=== PATIENT | male | born 1985 | race Caucasian/White ===

== ENCOUNTER 2018-04-02 12:06 | Emergency (ER) | payer SELFPAY ==
[2018-04-02 12:15] VITALS: BP 114/70; PULSE 82; TEMP 98.6; BMI 24.0
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
== END 2018-04-02 12:56 | disposition home or self-care (01) ==
LOC: JERFT 12:06
DX: M25.561 Pain in right knee (principal); M25.562 Pain in left knee; F17.210 Nicotine dependence, cigarettes, uncomplicated
CPT/HCPCS: 99281-25

== ENCOUNTER 2019-08-16 18:32 | Inpatient (IN) | payer OTHER ==
[2019-08-16] MEDS ORDERED: chlordiazePOXIDE HCL 25 MG CAPSULE PO STA (18:50)
[2019-08-16] MEDS ORDERED: chlordiazePOXIDE HCL 25 MG CAPSULE ONE ×2 (18:56→23:22)
[2019-08-16] MEDS ORDERED: FOLIC ACID INJECTION - 1 MG, THIAMINE HCL 100 MG, MULTIVIT INJECTION ADULT 10 ML in SOD... IVPB ONE (19:03)
[2019-08-16 19:04] VITALS: BMI 24.0
[2019-08-16 19:11] LABS: BASO % 1.1 % (0-2.0); EOS % 0.4 % (0-4.5); HEMATOCRIT 42.8 % (35.4-49); HEMOGLOBIN 14.9 GM/dL (11.7-16.9); LYMPH % 10.8 % (8-40); MCH 34.6 pg (25.7-33.7); MCHC 34.8 g/dl (32.0-35.9); MEAN CELL VOLUME 99.3 fl (80-96); MEAN PLT VOLUME 8.9 fl (7.5-11.1); MONO % 6.5 % (3.8-10.2); NEUT % 81.2 % (42.8-82.8); PLATELET COUNT 52 K/MM3 (134-434); RBC 4.31 M/mm3 (4.00-5.60); WHITE BLOOD COUNT 6.2 K/mm3 (4.0-10.0)
[2019-08-16] MEDS ORDERED: LORazepam 2 MG/ML SDV VIAL ONE (19:13)
[2019-08-16 19:51] LABS: ALBUMIN 4.4 g/dl (3.4-5.0); BLOOD UREA NITROGEN 7.5 mg/dL (7-18); CALCIUM 9.3 mg/dL (8.5-10.1); CREATININE 0.7 mg/dL (0.55-1.3); POTASSIUM 3.8 mmol/L (3.5-5.1); TOT PROT 8.2 g/dl (6.4-8.2)
--- NOTE | 2019-08-16 20:34 | PDOC ---
Documentation entered by Yusef Rich SCRIBE, acting as scribe for Taylor Fraga MD. Taylor Fraga MD: This documentation has been prepared by the Hilario ny Daniel, SCRIBE, under my direction and personally reviewed by me in its entirety. I confirm that the documentation accurately reflects all work, treatment, procedures, and medical decision making performed by me. History of Present Illness - General Chief Complaint: Tremors Stated Complaint: FALL Time Seen by Provider: 08/16/19 18:50 History Source: Patient Exam Limitations: No Limitations - History of Present Illness Initial Comments: 08/16/19 19:05 The patient is a 33 year old male with a past medical history of alcohol abuse ( 6 pack a day) here today for evaluation of seizure. The patients family reports that the patients last drink was yesterday and had a witnessed seizure when he stepped out to smoke a cigarette around 5 PM today. Family notes that the patient had recent left ear pain but is being followed for it. Patient denies headache, lightheadedness. Denies fever, chills. Denies chest pain, shortness of breath. Denies nausea, vomiting, diarrhea, abdominal pain. Allergies: NKA Past History - Past Medical History Allergies/Adverse Reactions: Allergies Allergy/AdvReac Type Severity Reaction Status Date / Time No Known Allergies Allergy Verified 08/16/19 18:52 Home Medications: Ambulatory Orders NK [No Known Home Medication] 04/02/18 COPD: No - Immunization History Immunization Up to Date: Yes - Psycho Social/Smoking Cessation Hx Smoking History: Current some day smoker Number of Cigarettes Smoked Daily: 5 Hx Alcohol Use: Yes (social) Drug/Substance Use Hx: No Review of Systems - Review of Systems Able to Perform ROS?: Yes Comments:: 08/16/19 19:05 CONSTITUTIONAL: Absent: fever, chills, diaphoresis, generalized weakness, malaise, loss of appetite HEENT: +tongue fasciculations. Absent: rhinorrhea, nasal congestion, throat pain, throat swelling, difficulty swallowing, mouth swelling, ear pain, eye pain, visual Changes CARDIOVASCULAR: Absent: chest pain, syncope, palpitations, irregular heart rate, lightheadedness , peripheral edema RESPIRATORY: Absent: cough, shortness of breath, dyspnea with exertion, orthopnea, wheezing, stridor, hemoptysis GASTROINTESTINAL: Absent: abdominal pain, abdominal distension, nausea, vomiting, diarrhea, constipation, melena, hematochezia GENITOURINARY: Absent: dysuria, frequency, urgency, hesitancy, hematuria, flank pain, genital pain MUSCULOSKELETAL: Absent: myalgia, arthralgia, joint swelling SKIN: Absent: rash, itching, pallor HEMATOLOGIC/IMMUNOLOGIC: Absent: easy bleeding, easy bruising, lymphadenopathy, frequent infections ENDOCRINE: Absent: unexplained weight gain, unexplained weight loss, heat intolerance, cold intolerance NEUROLOGIC: +extremity tremors. +general weakness. Absent: headache, focal weakness or paresthesias, dizziness, unsteady gait, mental status changes, bladder or bowel incontinence PSYCHIATRIC: Absent: anxiety, depression, suicidal or homicidal ideation, hallucinations. *Physical Exam - Vital Signs Last Vital Signs Temp Pulse Resp BP Pulse Ox 98.2 F 87 16 131/77 96 08/16/19 18:56 08/16/19 18:56 08/16/19 18:56 08/16/19 18:56 08/16/19 18:56 - Physical Exam 08/16/19 19:06 GENERAL: +disheveled appearing. +slim. Awake and alert. No acute distress. HEENT: +tongue fasciculations. Normocephalic. PERRLA, EOMI. No conjunctival pallor. Sclera are non-icteric. Moist mucous membranes. Oropharynx is clear. NECK: Supple. Full ROM. No JVD. Carotid pulses 2+ and symmetric, without bruits. No thyromegaly. No lymphadenopathy. CARDIOVASCULAR: Regular rate and rhythm. No murmurs, rubs, or gallops. Distal pulses are 2+ and symmetric. PULMONARY: No evidence of respiratory distress. Lungs clear to auscultation bilaterally. No wheezing, rales or rhonchi. ABDOMINAL: Soft. Non-tender. Non-distended. No rebound or guarding. No organomegaly. Normoactive bowel sounds. MUSCULOSKELETAL Normal range of motion at all joints. No bony deformities or tenderness. No CVA tenderness. EXTREMITIES: No cyanosis. No clubbing. No edema. No calf tenderness. SKIN: +4 cm hematoma on left forehead. +multiple abrasions to the left side of the face. Warm and dry. Normal capillary refill. No rashes. No jaundice. NEUROLOGICAL: +tremulous. Alert, awake, appropriate. Cranial nerves 2-12 intact. No deficits to light touch and temperature in face, upper extremities and lower extremities. No motor deficits in the face, upper extremities and lower extremities. Normoreflexic in the upper and lower extremities. Normal speech. Toes are down- going bilaterally. PSYCHIATRIC: Cooperative. Good eye contact. Appropriate mood and affect. ED Treatment Course - LABORATORY CBC & Chemistry Diagram: 08/16/19 18:55 08/16/19 18:55 - ADDITIONAL ORDERS Additional order review: Laboratory Results 08/16/19 08/16/19 19:30 18:55 Sodium 130 L Potassium 3.8 Chloride 95 L Carbon Dioxide 22 Anion Gap 13 BUN 7.5 Creatinine 0.7 Est GFR (CKD-EPI)AfAm 145.74 Est GFR (CKD-EPI)NonAf 125.75 Random Glucose 147 H Calcium 9.3 Total Bilirubin 2.0 H AST 182 H ALT 117 H Alkaline Phosphatase 91 Total Protein 8.2 Albumin 4.4 Alcohol, Quantitative < 3 08/16/19 18:55 RBC 4.31 MCV 99.3 H MCHC 34.8 RDW 12.0 MPV 8.9 Neutrophils % 81.2 Lymphocytes % 10.8 Monocytes % 6.5 Eosinophils % 0.4 Basophils % 1.1 - RADIOLOGY Radiology Studies Ordered: Category Date Time Status HEAD CT WITHOUT CONTRAST [CT] Stat CT Scan 08/16/19 18:52 Completed - Medications Given in the ED: ED Medications Discontinued Medications Generic Name Dose Route Start Last Admin Trade Name Freq PRN Reason Stop Dose Admin Chlordiazepoxide HCl 50 mg 08/16/19 18:50 08/16/19 19:01 Librium - PO 08/16/19 18:51 50 mg ONCE STA Administration Lorazepam 2 mg 08/16/19 19:02 08/16/19 19:16 Ativan Injection - IVPUSH 08/16/19 19:03 2 mg ONCE ONE Administration Medical Decision Making - Medical Decision Making 08/16/19 20:25 Dr. Cat paged and returned call, case discussed. 08/16/19 20:32 33-year-old male a known history of alcoholism stopped yesterday and had a tonic-clonic seizure in the hallway at his home. Sustained large forehead hematomas and facial abrasions. Upon arrival he was tremulous with tongue fasciculations. Patient had received Ativan and Librium CAT scan did not show any acute bleed infarct or skull fracture Labs reviewed Patient has elevated total bili and LFTs but is currently not complaining of epigastric pain or nausea or vomiting EKG is normal sinus rhythm at 79 bpm at this time, QTC [address] Jose Cat will follow the patient Impression alcohol withdrawal seizure, DTs 08/16/19 20:34 08/16/19 20:37 08/16/19 20:39 Discharge - Discharge Information Problems reviewed: No Clinical Impression/Diagnosis: Alcohol abuse, Elevated liver function tests Withdrawal seizures Qualifiers: Complication of substance-induced condition: with unspecified complication Qualified Code(s): F19.239 - Other psychoactive substance dependence with withdrawal, unspecified; R56.9 - Unspecified convulsions Closed head injury Qualifiers: Encounter type: initial encounter Qualified Code(s): S09.90XA - Unspecified injury of head, initial encounter Hematoma of frontal scalp Qualifiers: Encounter type: initial encounter Qualified Code(s): S00.03XA - Contusion of scalp, initial encounter Facial abrasion Qualifiers: Encounter type: initial encounter Qualified Code(s): S00.81XA - Abrasion of other part of head, initial encounter - Admission Yes - Follow up/Referral - Patient Discharge Instructions - Post Discharge Activity
--- NOTE | 2019-08-16 21:20 | PN ---
Teaching Attending Note Name of Resident: Margie Garner ATTENDING PHYSICIAN STATEMENT I saw and evaluated the patient. I reviewed the resident's note and discussed the case with the resident. I agree with the resident's findings and plan as documented. SUBJECTIVE: Patient is a 33 year old man with a PMH of Tobacco use and Alcohol abuse (6 pack a day) here today for evaluation of seizure, fall and head trauma. The patients family reports that the patients last drink was yesterday and had a witnessed seizure when he stepped out to smoke a cigarette around 5 PM today. Family notes that the patient had recent left ear pain but is being followed for it. Patient denies headache, lightheadedness, fever, chills, chest pain, shortness of breath, nausea, vomiting, diarrhea or abdominal pain. OBJECTIVE: Alert Vital Signs Period Temp Pulse Resp BP Sys/Art Pulse Ox Last 24 Hr 98.2 F 87 16 131/77 96 HEENT: No Jaundice, eye redness or discharge, PERRLA, EOMI. Normocephalic; left forehead hematoma. External ears are normal and hearing is grossly intact. No nasal discharge. Neck: Supple, nontender. No palpable adenopathy or thyromegaly. No JVD Chest: Good effort. Clear to auscultation and percussion. Heart: Regular. No S3, rub or murmur Abdomen: Not distended, soft, nontender and no HSM. No rebound or guarding. Normal bowel sounds. Ext: Peripheral pulses intact. No leg edema. Skin: Warm and dry. No petechiae, rash or ecchymosis. Neuro: Alert. Tremulous, tongue fasciculations. CN 2-12 grossly intact. Sensation grossly intact in all four extremities and DTR are symmetric. Psych: Appropriate mood and affect. Good insight. Current Medications Generic Name Dose Route Start Last Admin Trade Name Freq PRN Reason Stop Dose Admin Folic Acid 1 mg/ Thiamine HCl 1,000 mls @ 125 mls/hr 08/16/19 19:03 08/16/19 21:41 100 mg/ Multivitamins/Minerals IVPB 08/17/19 03:02 125 mls/hr 10 ml/ Sodium Chloride ONCE ONE Administration Home Medications Medication Instructions Recorded NK [No Known Home Medication] 04/02/18 Abnormal Lab Results 08/16/19 08/16/19 18:55 18:55 MCV 99.3 H MCH 34.6 H Plt Count 52 L Sodium 130 L Chloride 95 L Random Glucose 147 H Total Bilirubin 2.0 H AST 182 H ALT 117 H ASSESSMENT AND PLAN: 1. Alcohol withdrawal seizure - Head CT scan showed left frontal scalp hematoma but no acute intracranial pathology. Hyponatremia, low platelets and elevated LFTs are all likely due to alcoholism. EKG is NSR with no significant changes. Will restrict free water intake to correct hyponatremia and monitor BMP q 6 hours. Will get upper abdominal sonogram, hepatitis serology, HbA1c, NH3, and trend LFTs. Monitor platelets and size of hematoma daily. Repeat head CT to assess hematoma in 24 hours if mentation fail to normalize. Will implement CIWA ativan alcohol withdrawal protocol and do neurochecks. Implement seizure, fall and aspiration precautions. Treat with thiamine and folic acid and monitor electrolytes (Ca,Mg,K,P). Counseled patient about abstaining from alcohol. Will consult parts specialist and refer to alcohol detox upon discharge. Will continue comprehensive care for all of patients comorbid conditions. 2. Tobacco Use Counseled on risks associated with tobacco use. We will provide patient all the necessary assistance to facilitate smoking cessation and prescribe Nicotine patch. 3. DVT prophylaxis - Platelets too low for either heparin use or SCD. Will do early ambulation was clinically safe. 4. Advance directives - Full code
--- NOTE | 2019-08-16 22:37 | HP ---
CHIEF COMPLAINT: Seizure, alcohol withdrawal PCP: none HISTORY OF PRESENT ILLNESS: Patient is a 33 year old male with PMH of alcohol abuse who presents s/p seizure. Pt is poor historian and seems confused about details of events. He drinks 10 beers a day, his last alcoholic drink was yesterday. States that he did not drink today because he was "scared about what happened yesterday" (but cannot state what had occurred). This afternoon, he was walking into his house after work and had a witnessed tonic-clonic seizure that lasted for ~10 min. He fell and hit the left side of his head and lost consciousness for a minute. Event was witnessed by patient's family. He denies any seizures or any neurologic problems in the past. On arrival to ED, pt is tremulous and agitated. Endorses auditory hallucinations. Complains of a moderate headache, especially where he hit his head. Denies nausea, vomiting, abd pain. CIWA on admission: 14 Recent Travel: denies PAST MEDICAL HISTORY: Denies PAST SURGICAL HISTORY: Denies Social History: Smokin cigarettes/day Alcohol: 10 beers/day Drugs: denies Allergies No Known Allergies Allergy (Verified 08/16/19 18:52) HOME MEDICATIONS: Home Medications Medication Instructions Recorded NK [No Known Home Medication] 04/02/18 REVIEW OF SYSTEMS CONSTITUTIONAL: Absent: fever, chills, diaphoresis, generalized weakness, malaise, loss of appetite, weight change HEENT: Absent: rhinorrhea, nasal congestion, throat pain, throat swelling, difficulty swallowing, mouth swelling, ear pain, eye pain, visual changes CARDIOVASCULAR: Absent: chest pain, syncope, palpitations, irregular heart rate, lightheadedness , peripheral edema RESPIRATORY: Absent: cough, shortness of breath, dyspnea with exertion, orthopnea, wheezing, stridor, hemoptysis GASTROINTESTINAL: Absent: abdominal pain, abdominal distension, nausea, vomiting, diarrhea, constipation, melena, hematochezia GENITOURINARY: Absent: dysuria, frequency, urgency, hesitancy, hematuria, flank pain, genital pain MUSCULOSKELETAL: Absent: myalgia, arthralgia, joint swelling, back pain, neck pain SKIN: Absent: rash, itching, pallor HEMATOLOGIC/IMMUNOLOGIC: Absent: easy bleeding, easy bruising, lymphadenopathy, frequent infections ENDOCRINE: Absent: unexplained weight gain, unexplained weight loss, heat intolerance, cold intolerance NEUROLOGIC: headache, seizure Absent: focal weakness or paresthesias, dizziness, unsteady gait, mental status changes, bladder or bowel incontinence PSYCHIATRIC: Absent: anxiety, depression, suicidal or homicidal ideation, hallucinations. PHYSICAL EXAMINATION Vital Signs - 24 hr 08/16/19 18:56 Temperature 98.2 F Pulse Rate 87 Respiratory 16 Rate Blood Pressure 131/77 O2 Sat by Pulse 96 Oximetry (%) GENERAL: Awake, alert, and oriented. Agitated and tremulous. HEAD: 4cm hematoma on L forehead. EYES: Pupils equal, round and reactive to light, extraocular movements intact, sclera mildly icteric. No lid lag. EARS, NOSE, THROAT: Ears normal, nares patent, oropharynx clear without exudates. Moist mucous membranes. Tongue fasciculations NECK: Normal range of motion, supple without lymphadenopathy, JVD, or masses. LUNGS: Breath sounds equal, clear to auscultation bilaterally. No wheezes, and no crackles. No accessory muscle use. HEART: Regular rate and rhythm, normal S1 and S2 without murmur, rub or gallop. ABDOMEN: Soft, nontender, not distended, normoactive bowel sounds, no guarding, no rebound, no masses. No hepatomegaly or splenomegaly. MUSCULOSKELETAL: Normal range of motion at all joints. No bony deformities or tenderness. No CVA tenderness. UPPER EXTREMITIES: 2+ pulses, warm, well-perfused. No cyanosis. No clubbing. No peripheral edema. LOWER EXTREMITIES: 2+ pulses, warm, well-perfused. No calf tenderness. No peripheral edema. NEUROLOGICAL: Cranial nerves II-XII intact. Muffled speech. Gait not observed. Tremor Laboratory Results - last 24 hr 08/16/19 08/16/19 08/16/19 18:55 18:55 19:30 WBC 6.2 RBC 4.31 Hgb 14.9 Hct 42.8 MCV 99.3 H MCH 34.6 H MCHC 34.8 RDW 12.0 Plt Count 52 L MPV 8.9 Absolute Neuts (auto) 5.1 Neutrophils % 81.2 Lymphocytes % 10.8 Monocytes % 6.5 Eosinophils % 0.4 Basophils % 1.1 Nucleated RBC % 0 Sodium 130 L Potassium 3.8 Chloride 95 L Carbon Dioxide 22 Anion Gap 13 BUN 7.5 Creatinine 0.7 Est GFR (CKD-EPI)AfAm 145.74 Est GFR (CKD-EPI)NonAf 125.75 Random Glucose 147 H Calcium 9.3 Total Bilirubin 2.0 H AST 182 H ALT 117 H Alkaline Phosphatase 91 Total Protein 8.2 Albumin 4.4 Alcohol, Quantitative < 3 ASSESSMENT/PLAN: Patient is a 33 year old male with PMH of alcohol abuse who presents s/p seizure. #Seizure likely 2/2 alcohol withdrawal Received 2mg ativan and 50mg librium in ED Will cont ativan protocol (scheduled dosing for now) Banana bag Frequent neuro exams, CIWA monitoring Neurology (Dr. Cat) consulted: does not recommend anti-epileptics at this time, cont to monitor and treat withdrawal Transaminitis likely 2/2 alcohol abuse. AST: 182, ALT: 117, will cont to trend #Elevated bilirubin T bili: 2 Likely 2/2 alcohol abuse RUQ US to r/o underlying pathology #Thrombocytopenia Platelets: 52 Likely 2/2 alcohol abuse F/u coags #FEN Regular diet IV NS @ 100 ml/hr #DVT ppx Heparin sq #Dispo Monitor on med-surg ATTENDING PHYSICIAN STATEMENT I saw and evaluated the patient. I reviewed the resident's note and discussed the case with the resident. I agree with the resident's findings and plan as documented. SUBJECTIVE: OBJECTIVE: ASSESSMENT AND PLAN:
[2019-08-16] MEDS ORDERED: chlordiazePOXIDE HCL 25 MG CAPSULE PO ONE (23:01)
[2019-08-17 01:16] LABS: MAGNESIUM 1.7 mg/dL (1.8-2.4)
[2019-08-17] MEDS ORDERED: HEPARIN NA (PORCINE) 5,000 UNITS/ML 1ML VIAL ONE (06:40)
[2019-08-17 06:42] LABS: BASO % 0.8 % (0-2.0); EOS % 1.7 % (0-4.5); HEMATOCRIT 39.3 % (35.4-49); HEMOGLOBIN 13.9 GM/dL (11.7-16.9); LYMPH % 16.6 % (8-40); MCH 34.8 pg (25.7-33.7); MCHC 35.3 g/dl (32.0-35.9); MEAN CELL VOLUME 98.7 fl (80-96); MEAN PLT VOLUME 9.1 fl (7.5-11.1); MONO % 10.1 % (3.8-10.2); NEUT % 70.8 % (42.8-82.8); PLATELET COUNT 49 K/MM3 (134-434); RBC 3.98 M/mm3 (4.00-5.60)
[2019-08-17] MEDS: HEPARIN NA (PORCINE) 5,000 UNITS/ML 1ML VIAL SQ SCH ×2 (06:46→16:25)
[2019-08-17 06:51] LABS: ALBUMIN 3.9 g/dl (3.4-5.0); BILIRUBIN,TOTAL 2.2 mg/dL (0.2-1); CALCIUM 9.1 mg/dL (8.5-10.1); CREATININE 0.5 mg/dL (0.55-1.3); POTASSIUM 3.4 mmol/L (3.5-5.1); TOT PROT 7.4 g/dl (6.4-8.2)
[2019-08-17 06:53] LABS: ALBUMIN 3.9 g/dl (3.4-5.0); BILIRUBIN,DIRECT 0.6 mg/dL (0.0-0.2); BILIRUBIN,TOTAL 2.2 mg/dL (0.2-1); TOT PROT 7.4 g/dl (6.4-8.2)
[2019-08-17 07:11] LABS: COCAINE, UR NEGATIVE ng/ml (CUTOFF=300); METHADONE, UR NEGATIVE ng/ml (CUTOFF=300); OPIATES, URI NEGATIVE ng/ml (CUTOFF=300); PHENCYCLIDINE,URINE NEGATIVE ng/ml (CUTOFF=25); URINE AMPHETAMINES NEGATIVE ng/ml (CUTOFF=500); URINE BARBITURATES NEGATIVE ng/ml (CUTOFF=200)
[2019-08-17] MEDS ORDERED: POTASSIUM CHLORIDE TABS 20 MEQ TABLET.ER (FP) PO ONE ×2 (08:16→08:56)
[2019-08-17] MEDS ORDERED: MAGNESIUM SULF 50% (8.12 MEQ/2 ML-1 GM VIAL) IVPB ONE (08:17)
[2019-08-17 08:20] LABS: URINE BENZODIAZEPINES POSITIVE ng/ml (CUTOFF=200)
[2019-08-17 08:35] LABS: INR 1.02 (0.83-1.09)
[2019-08-17] MEDS ORDERED: MAGNESIUM SULFATE IN WATER 2 GM/50 ML IVPB IVPB ONE (08:56)
--- NOTE | 2019-08-17 09:04 | CON.NEURO ---
Consult Consult Specialty:: Stephania Referred by:: ER - History of Present Illness History of Present Illness: 33-year-old right-handed man with history of alcohol abuse presents to the hospital with a chief complaint of witnessed seizure. I was called by the emergency room last night that the patient drinks about 10. The patient had a witnessed generalized tonic-clonic seizure no report of any recent travel no family history of seizure in the emergency room patient. Lives with no intervention. Patient was back to his baseline. Patient received a cocktail of time and Librium and the folic acid. Since the past 12 hours patient with no recurrence of his seizure activity. CAT scan of the head reveals no evidence for acute pathology. - History Source History Provided By: Patient Limitations to Obtaining History: No Limitations - Alcohol/Substance Use Hx Alcohol Use: Yes (social) - Smoking History Smoking history: Current some day smoker Aproximately how many cigarettes per day: 5 Home Medications - Allergies Allergies/Adverse Reactions: Allergies Allergy/AdvReac Type Severity Reaction Status Date / Time No Known Allergies Allergy Verified 08/16/19 18:52 - Home Medications Home Medications: Ambulatory Orders NK [No Known Home Medication] 04/02/18 Family Medical History Family History: Unremarkable Review of Systems - Review of Systems Constitutional: reports: No Symptoms Eyes: reports: No Symptoms Neurological: reports: Headache, Incoordination, Numbness Physical Exam-Neuro Vital Signs: Vital Signs Temperature 98.0 F 08/17/19 07:53 Pulse Rate 89 08/17/19 07:53 Respiratory Rate 17 08/17/19 07:53 Blood Pressure 144/87 08/17/19 07:53 O2 Sat by Pulse Oximetry (%) 98 08/17/19 07:53 Constitutional: Yes: Well Nourished Neck: Yes: WNL Cardiovascular: Yes: WNL Labs: CBC, BMP 08/17/19 05:50 08/17/19 05:50 INR, PTT INR 1.02 (0.83-1.09) 08/17/19 07:45 - Neuro Exam Level Of Consciousness: Yes: Oriented to Person, Oriented to Place, Oriented to Time Eyes: Yes: PERRLA Speech: WNL Dominant Hand: Right Gag: Present DTR's: 1+ Left Bicep, 1+ Right Bicep, 1+ Left Tricep, 1+ Right Tricep Response to light touch: Normal Response to pain prick: Normal Response to temperature: Normal Response to vibration: Normal Motor Strength: 3/5: Left Arm, Right Arm, Left Leg, Right Leg Gait: Deferred Imaging - Results Cat Scan: Image Reviewed Problem List - Problems (1) Withdrawal seizures Assessment/Plan: very hard to differentiate outcome withdrawal seizure from alcohol-induced seizure New onset seizure. 1. Seizure precautions. 2. Suggest AAA. 3. Thiamine 100 mg once daily. 4. Do not start antiseizure medication for now. Thank you very much for allowing me to be part of this patient's neurological care we'll follow the patient during the admission thank you Jose Cat Code(s): F19.239 - OTH PSYCHOACTIVE SUBSTANCE DEPENDENCE WITH WITHDRAWAL, UNSP; R56.9 - UNSPECIFIED CONVULSIONS Qualifiers: Complication of substance-induced condition: with unspecified complication Qualified Code(s): F19.239 - Other psychoactive substance dependence with withdrawal, unspecified; R56.9 - Unspecified convulsions
[2019-08-17] MEDS ORDERED: LORazepam 0.5 MG TABLET ONE (09:10)
[2019-08-17] MEDS: LORazepam 1 MG TABLET PO PRN ×2 (09:30→14:36)
--- NOTE | 2019-08-17 10:07 | CONSULT ---
Consult Detox [facility] Reason for Current Admission/Consult: Patient is alcoholic and suffered witnessed generalized seizure prior to admission to ER. Referred by:: ER attending - History History of Present Illness: Patient is a 33 year old male with PMH of alcohol abuse who presents s/p seizure. As per medical records he is confused and does not know details of events. He drinks 10 beers a day, his last alcoholic drink was yesterday. States that he did not drink today because he was "scared about what happened yesterday" (but cannot state what had occurred). This afternoon, he was walking into his house after work and had a witnessed tonic-clonic seizure that lasted for ~10 min. He fell and hit the left side of his head and lost consciousness for a minute. Event was witnessed by patient's family. He denies any seizures or any neurologic problems in the past. On arrival to ED, he was tremulous and agitated. Endorses auditory hallucinations. Complains of a moderate headache, especially where he hit his head. - History Source History Provided By: Medical Record Limitations to Obtaining History: Poor Historian - Alcohol/Substance Use Hx Alcohol Use: Yes (social) Hx Substance Use: No Hx Substance Use Treatment: No - Significant Medical Findings: 1. Alcohol Use Disorder: From history he has a alcohol use disorder but he does not endorse a dependence. It is unclear if the seizures were withdrawal of if there is a primary neurological cause. However, it is very possible that he did suffer delirium tremens after a heavy night drinking and upon withdrawals had a seizure. But the primary neurological cause has to be ruled out. If he then wishes treatment, he can transfer to [facility] for completion of detox and then consider rehab. But without a clear history of continuous alcohol use and endorsement of blackout or other co-morbid disorder in line with alcohol dependence, he may not be a candidate for detox. He must also express the wish to be helped and consent to the detox protocol's continuation. Once his medical condition is stabilized, he can be transferred if he so wishes. Ativan can be continued as the detox protocol while in ED and if admitted in light of his transaminitis that is the preferred drug of choice for detox in this case. 2. Seizure of unknown etiology: Neuro must clear and perhaps with EEG to rule out primary neurological etiology. Continue Ativan. Dr. Jordy MCCARTHY Score - CIWA Score Nausea/Vomitin-Mild Nausea/No Vomiting Muscle Tremors: 3 Anxiety: 2 Agitation: 2 Paroxysmal Sweats: 1-Minimal Palms Moist Orientation: 0-Oriented Tacttile Disturbances: 0-None Auditory Disturbances: 1-Very Mild Visual Disturbances: 1-Very Mild Sensitivity Headache: 2-Mild CIWA-Ar Total Score: 13
--- NOTE | 2019-08-17 10:15 | EKG ---
Test Reason : Blood Pressure : / mmHG Vent. Rate : 079 BPM Atrial Rate : 079 BPM P-R Int : 130 ms QRS Dur : 102 ms QT Int : 382 ms P-R-T Axes : 050 069 057 degrees QTc Int : 438 ms NORMAL SINUS RHYTHM NORMAL ECG NO PREVIOUS ECGS AVAILABLE Confirmed by Feliciano Haines MD ([id number]) on 08/17/2019 10:15:08 AM Referred By: Confirmed By:Feliciano Haines MD
[2019-08-17 11:28] LABS: MAGNESIUM 2.2 mg/dL (1.8-2.4)
[2019-08-17] MEDS ORDERED: THIAMINE HCL 100 MG TABLET (FP) PO SCH (14:15)
[2019-08-17 15:37] VITALS: BP 127/71; PULSE 96; TEMP 98.8
--- NOTE | 2019-08-17 16:37 | DS ---
Physical Exam: SUBJECTIVE: Patient seen and examined at the bedside. Patient was tremorous and was anxious. Denied headaches, chest pain, shortness of breath, abdominal pain, nausea, vomiting, constipation, diarrhea, dizziness, lightheadedness, hallucinations, numbness, tingling. OBJECTIVE: Vital Signs Period Temp Pulse Resp BP Sys/Art Pulse Ox Last 24 Hr 98.0 F-98.8 F 84-96 16-20 127-144/71-87 96-98 PHYSICAL EXAM GENERAL: The patient is awake, alert, and fully oriented, in mild acute distress. Tremorous HEAD: Noted left sided hematoma on the scalp. EYES: PERRL, extraocular movements intact, periorbital ecchymosis ENT: Oropharynx clear without exudates, dry mucous membranes. LUNGS: Breath sounds equal, clear to auscultation bilaterally, no wheezes, no crackles, no accessory muscle use. HEART: Regular rate and rhythm, S1, S2 without murmur, rub. ABDOMEN: Soft, nontender, nondistended, normoactive bowel sounds, no guarding, no rebound, no masses. EXTREMITIES: 2+ pulses, warm, well-perfused, no edema. NEUROLOGICAL: Cranial nerves II through XII grossly intact. 5/5 muscle strength , bilaterally, upper and lower extremities. Sensation intact throughout. PSYCH: Anxious mood. SKIN: Warm, dry, normal turgor. LABS Laboratory Results - last 24 hr 08/16/19 08/16/19 08/16/19 18:55 18:55 19:30 WBC 6.2 RBC 4.31 Hgb 14.9 Hct 42.8 MCV 99.3 H MCH 34.6 H MCHC 34.8 RDW 12.0 Plt Count 52 L MPV 8.9 Absolute Neuts (auto) 5.1 Neutrophils % 81.2 Lymphocytes % 10.8 Monocytes % 6.5 Eosinophils % 0.4 Basophils % 1.1 Nucleated RBC % 0 PT with INR INR Sodium 130 L Potassium 3.8 Chloride 95 L Carbon Dioxide 22 Anion Gap 13 BUN 7.5 Creatinine 0.7 Est GFR (CKD-EPI)AfAm 145.74 Est GFR (CKD-EPI)NonAf 125.75 Random Glucose 147 H Calcium 9.3 Phosphorus 3.0 Magnesium 1.7 L Total Bilirubin 2.0 H Direct Bilirubin AST 182 H ALT 117 H Alkaline Phosphatase 91 Total Protein 8.2 Albumin 4.4 Opiates Screen Methadone Screen Barbiturate Screen Phencyclidine Screen Ur Amphetamines Screen MDMA (Ecstasy) Screen Benzodiazepines Screen Cocaine Screen U Marijuana (THC) Screen Alcohol, Quantitative < 3 08/16/19 08/17/19 08/17/19 19:30 05:50 05:50 WBC 6.0 RBC 3.98 L Hgb 13.9 Hct 39.3 MCV 98.7 H MCH 34.8 H MCHC 35.3 RDW 12.0 Plt Count 49 L MPV 9.1 Absolute Neuts (auto) 4.2 Neutrophils % 70.8 Lymphocytes % 16.6 D Monocytes % 10.1 Eosinophils % 1.7 D Basophils % 0.8 Nucleated RBC % 0 PT with INR INR Sodium 134 L Potassium 3.4 L Chloride 100 Carbon Dioxide 25 Anion Gap 10 BUN 7.0 Creatinine 0.5 L Est GFR (CKD-EPI)AfAm 167.36 Est GFR (CKD-EPI)NonAf 144.40 Random Glucose 72 L Calcium 9.1 Phosphorus Magnesium 2.2 Total Bilirubin 2.2 H Direct Bilirubin AST 127 H ALT 94 H Alkaline Phosphatase 75 Total Protein 7.4 Albumin 3.9 Opiates Screen Negative Methadone Screen Negative Barbiturate Screen Negative Phencyclidine Screen Negative Ur Amphetamines Screen Negative MDMA (Ecstasy) Screen Negative Benzodiazepines Screen Positive A* Cocaine Screen Negative U Marijuana (THC) Screen Positive A* Alcohol, Quantitative 08/17/19 08/17/19 05:50 07:45 WBC RBC Hgb Hct MCV MCH MCHC RDW Plt Count MPV Absolute Neuts (auto) Neutrophils % Lymphocytes % Monocytes % Eosinophils % Basophils % Nucleated RBC % PT with INR 12.00 INR 1.02 Sodium Potassium Chloride Carbon Dioxide Anion Gap BUN Creatinine Est GFR (CKD-EPI)AfAm Est GFR (CKD-EPI)NonAf Random Glucose Calcium Phosphorus Magnesium Total Bilirubin 2.2 H Direct Bilirubin 0.6 H AST 125 H ALT 92 H Alkaline Phosphatase 74 Total Protein 7.4 Albumin 3.9 Opiates Screen Methadone Screen Barbiturate Screen Phencyclidine Screen Ur Amphetamines Screen MDMA (Ecstasy) Screen Benzodiazepines Screen Cocaine Screen U Marijuana (THC) Screen Alcohol, Quantitative HOSPITAL COURSE: Gaurav Teixeira is a 33 year old male with a past medical history of alcohol abuse who was admitted after a seizure likely secondary to alcohol withdrawal. Patient was seen by neurology and advised for no anti-epileptics due to seizure likely being from alcohol withdrawal. Head CT noted left scalp hematoma, possible mild bilateral cerebellar atrophy and no acute intracranial pathology. Was started on Ativan protocol for withdrawal with seizure precautions. Patient was counseled on cessation of alcohol. Elevated LFTs were noted. Thrombocytopenia was noted. Abdominal U/S was performed which showed fatty infiltration of the liver, no noted splenomegaly. Later in the day was notified by RN that patient had left the hospital. was called after the patient left the hospital to be notified that the patient had left the hospital. Date of Admission:08/16/19 Date of Discharge: 08/17/19 Minutes to complete discharge: 36 Discharge Summary Problems reviewed: No Reason For Visit: ALCOHOL ABUSE, DRUG WITHDRAWAL SEIZURE, HEMATOMA Current Active Problems Alcohol abuse (Acute) Closed head injury (Acute) Elevated liver function tests (Acute) Facial abrasion (Acute) Hematoma of frontal scalp (Acute) Withdrawal seizures (Acute) Condition: Unchanged/Unknown - Instructions Diet, Activity, Other Instructions: Patient eloped from the hospital prior to speaking with a physician. Disposition: AGAINST MEDICAL ADVICE - Home Medications Comprehensive Discharge Medication List: Ambulatory Orders NK [No Known Home Medication] 04/02/18 This patient is new to me today: Yes Date on this admission: 08/17/19 Emergency Visit: Yes ED Registration Date: 08/16/19 Care time: The patient presented to the Emergency Department on the above date and was hospitalized for further evaluation of their emergent condition. Critical Care patient: No - Discharge Referral Referred to [facility] Med P.C.: No ATTENDING PHYSICIAN STATEMENT I saw and evaluated the patient. I reviewed the resident's note and discussed the case with the resident. I agree with the resident's findings and plan as documented. SUBJECTIVE: OBJECTIVE: ASSESSMENT AND PLAN:
--- NOTE | 2019-08-17 16:41 | PN ---
Teaching Attending Note Name of Resident: Xavi Devine ATTENDING PHYSICIAN STATEMENT I saw and evaluated the patient. I reviewed the resident's note and discussed the case with the resident. I agree with the resident's findings and plan as documented with exceptions below. SUBJECTIVE: Patient seen and examined. tremulous, no complaints, eager to go home. OBJECTIVE: Vital Signs Period Temp Pulse Resp BP Sys/Art Pulse Ox Last 24 Hr 98.0 F-98.8 F 84-96 16-20 127-144/71-87 96-98 Intake & Output 08/14/19 08/15/19 08/16/19 08/17/19 23:59 23:59 23:59 23:59 Weight 140 lb General: no acute distress HEENT: left scalp swelling Chest: CTAB, no rales or wheezing Abdomen:soft, NT Extremities: tremulous Home Medications Medication Instructions Recorded NK [No Known Home Medication] 04/02/18 Active Medications Heparin Sodium (Porcine) (Heparin -) 5,000 unit SQ TID [facility] Last Admin: 08/17/19 16:25 Dose: Not Given Lorazepam (Ativan) 2 mg PO 0500,1100,1700,2300 [facility] Stop: 08/18/19 23:01 Lorazepam (Ativan -) 0.5 mg PO Q6H [facility] Stop: 08/20/19 23:01 Lorazepam (Ativan -) 0.5 mg PO Q4H PRN PRN Reason: Symptoms of Withdrawal Stop: 08/21/19 00:00 Lorazepam (Ativan -) 0.5 mg PO ONCE ONE Stop: 08/21/19 05:01 Lorazepam (Ativan -) 1 mg PO 0500,1100,1700,2300 [facility] Stop: 08/19/19 23:01 Lorazepam (Ativan -) 1 mg PO Q4H PRN PRN Reason: Symptoms of Withdrawal Stop: 08/18/19 00:46 Last Admin: 08/17/19 14:36 Dose: 1 mg Thiamine HCl (Vitamin B1 -) 100 mg PO DAILY [facility] Last Admin: 08/17/19 14:36 Dose: 100 mg Laboratory Results - last 24 hr 08/16/19 08/16/19 08/16/19 18:55 18:55 19:30 WBC 6.2 RBC 4.31 Hgb 14.9 Hct 42.8 MCV 99.3 H MCH 34.6 H MCHC 34.8 RDW 12.0 Plt Count 52 L MPV 8.9 Absolute Neuts (auto) 5.1 Neutrophils % 81.2 Lymphocytes % 10.8 Monocytes % 6.5 Eosinophils % 0.4 Basophils % 1.1 Nucleated RBC % 0 PT with INR INR Sodium 130 L Potassium 3.8 Chloride 95 L Carbon Dioxide 22 Anion Gap 13 BUN 7.5 Creatinine 0.7 Est GFR (CKD-EPI)AfAm 145.74 Est GFR (CKD-EPI)NonAf 125.75 Random Glucose 147 H Calcium 9.3 Phosphorus 3.0 Magnesium 1.7 L Total Bilirubin 2.0 H Direct Bilirubin AST 182 H ALT 117 H Alkaline Phosphatase 91 Total Protein 8.2 Albumin 4.4 Opiates Screen Methadone Screen Barbiturate Screen Phencyclidine Screen Ur Amphetamines Screen MDMA (Ecstasy) Screen Benzodiazepines Screen Cocaine Screen U Marijuana (THC) Screen Alcohol, Quantitative < 3 08/16/19 08/17/19 08/17/19 19:30 05:50 05:50 WBC 6.0 RBC 3.98 L Hgb 13.9 Hct 39.3 MCV 98.7 H MCH 34.8 H MCHC 35.3 RDW 12.0 Plt Count 49 L MPV 9.1 Absolute Neuts (auto) 4.2 Neutrophils % 70.8 Lymphocytes % 16.6 D Monocytes % 10.1 Eosinophils % 1.7 D Basophils % 0.8 Nucleated RBC % 0 PT with INR INR Sodium 134 L Potassium 3.4 L Chloride 100 Carbon Dioxide 25 Anion Gap 10 BUN 7.0 Creatinine 0.5 L Est GFR (CKD-EPI)AfAm 167.36 Est GFR (CKD-EPI)NonAf 144.40 Random Glucose 72 L Calcium 9.1 Phosphorus Magnesium 2.2 Total Bilirubin 2.2 H Direct Bilirubin AST 127 H ALT 94 H Alkaline Phosphatase 75 Total Protein 7.4 Albumin 3.9 Opiates Screen Negative Methadone Screen Negative Barbiturate Screen Negative Phencyclidine Screen Negative Ur Amphetamines Screen Negative MDMA (Ecstasy) Screen Negative Benzodiazepines Screen Positive A* Cocaine Screen Negative U Marijuana (THC) Screen Positive A* Alcohol, Quantitative 08/17/19 08/17/19 05:50 07:45 WBC RBC Hgb Hct MCV MCH MCHC RDW Plt Count MPV Absolute Neuts (auto) Neutrophils % Lymphocytes % Monocytes % Eosinophils % Basophils % Nucleated RBC % PT with INR 12.00 INR 1.02 Sodium Potassium Chloride Carbon Dioxide Anion Gap BUN Creatinine Est GFR (CKD-EPI)AfAm Est GFR (CKD-EPI)NonAf Random Glucose Calcium Phosphorus Magnesium Total Bilirubin 2.2 H Direct Bilirubin 0.6 H AST 125 H ALT 92 H Alkaline Phosphatase 74 Total Protein 7.4 Albumin 3.9 Opiates Screen Methadone Screen Barbiturate Screen Phencyclidine Screen Ur Amphetamines Screen MDMA (Ecstasy) Screen Benzodiazepines Screen Cocaine Screen U Marijuana (THC) Screen Alcohol, Quantitative ASSESSMENT AND PLAN: 33 yom with ETOH abuse admitted with seizures, suspected ETOH withdrawal. -Seizures, suspect alcohol withdrawal related -ETOH abuse/dependence -Abnormal LFTs, suspect ETOh related -Thrombocytopenia from ETOH abuse related bone marrow suppression_+/- sequestration Plan: No further seizures, neurology input. Hold off on anti-epileptics trauma w/u neg. Platelets stable, LFTs improved [facility] based on course if patient agreable.
[2019-08-17] MEDS ORDERED: LORazepam 2 MG TABLET PO SCH (23:00)
[2019-08-19] MEDS ORDERED: LORazepam 1 MG TABLET PO SCH (05:00)
[2019-08-20] MEDS ORDERED: LORazepam 0.5 MG TABLET PO PRN
[2019-08-20] MEDS ORDERED: LORazepam 0.5 MG TABLET PO SCH (05:00)
[2019-08-21] MEDS ORDERED: LORazepam 0.5 MG TABLET PO ONE (05:00)
== END 2019-08-17 16:00 | disposition left against medical advice (07) | DRG 53 ==
LOC: JER 18:32 → JERBED 23:09 → J8W 08-17 10:36
PROVIDERS: ADMIT Internal Medicine; ATTEND Hospitalist
DX: R56.9 Unspecified convulsions (principal); F10.230 Alcohol dependence with withdrawal, uncomplicated; E87.1 Hypo-osmolality and hyponatremia; F19.239 Other psychoactive substance dependence with withdrawal, unspecified; D69.6 Thrombocytopenia, unspecified; S00.83XA Contusion of other part of head, initial encounter; W19.XXXA Unspecified fall, initial encounter; Y92.89 Other specified places as the place of occurrence of the external cause; Y99.8 Other external cause status; S00.81XA Abrasion of other part of head, initial encounter; F17.210 Nicotine dependence, cigarettes, uncomplicated; K76.89 Other specified diseases of liver; R44.0 Auditory hallucinations
CPT/HCPCS: 36415; 70450-TC; 76705-TC; 80053; 80074; 80076; 80307; 83735; 84100; 85025; 85610; 93005; 93010; 99285-25; J1644; J7030

== ENCOUNTER 2019-08-18 18:27 | Inpatient (IN) | payer OTHER ==
--- NOTE | 2019-08-18 19:20 | PDOC ---
Attending Attestation - Resident Resident Name: Alysha Boswell - ED Attending Attestation I have performed the following: I have examined & evaluated the patient, The case was reviewed & discussed with the resident, I agree w/resident's findings & plan - HPI HPI: 08/18/19 22:46 see resident hpi - Physicial Exam PE: 08/18/19 22:46 agree with resident exam - Critical Care Time Total Critical Care Time: 40 Critical Care Statement: The care of this patient involved high complexity decision making to prevent further life threatening deterioration of the patient 's condition and/or to evaluate & treat vital organ system(s) failure or risk of failure. - Medical Decision Making 08/18/19 22:47 33-year-old male with seizure after leaving alcohol detox admission prematurely Patient had active tongue fasciculations and tremors on arrival Ativan 4 mg given IV We will admit to medical service for further evaluation
[2019-08-18] MEDS ORDERED: LORazepam 2 MG/ML SDV VIAL ONE (21:08)
[2019-08-18 21:42] LABS: BASO % 0.9 % (0-2.0); EOS % 2.9 % (0-4.5); HEMATOCRIT 39.9 % (35.4-49); HEMOGLOBIN 14.1 GM/dL (11.7-16.9); LYMPH % 22.6 % (8-40); MCH 34.6 pg (25.7-33.7); MCHC 35.4 g/dl (32.0-35.9); MEAN CELL VOLUME 97.8 fl (80-96); MEAN PLT VOLUME 9.6 fl (7.5-11.1); MONO % 10.9 % (3.8-10.2); NEUT % 62.7 % (42.8-82.8); PLATELET COUNT 68 K/MM3 (134-434); RBC 4.08 M/mm3 (4.00-5.60); RDW 12.2 % (11.9-15.9); WHITE BLOOD COUNT 6.2 K/mm3 (4.0-10.0)
[2019-08-18 21:54] LABS: INR 0.96 (0.83-1.09); PROTHROMBIN TIME (PATIENT) 11.3 SEC (9.7-13.0)
[2019-08-18 22:02] LABS: ALBUMIN 4.4 g/dl (3.4-5.0); BILIRUBIN,TOTAL 1.6 mg/dL (0.2-1); CALCIUM 9.5 mg/dL (8.5-10.1); CREATININE 0.6 mg/dL (0.55-1.3); POTASSIUM 3.6 mmol/L (3.5-5.1); TOT PROT 8.3 g/dl (6.4-8.2)
--- NOTE | 2019-08-18 22:21 | PDOC ---
History of Present Illness - General Chief Complaint: Substance Abuse Stated Complaint: INJURY,Zeizure, signed out AMA yesterday Time Seen by Provider: 08/18/19 19:17 - History of Present Illness Initial Comments: HPI: 33yo M with PMH of alcohol abuse (6 pack a day) here today for evaluation of seizure. Notably patient was here on Friday for similar complaint, was admitted , and eloped from the hospital yesterday. Patient admits to drinking five beers last night around 9pm. Mother and brother are at the bedside providing collateral history. They witnessed a seizure with jerking/shaking movements around 6pm today for about 5-10 minutes. Patient hit his head and while on the ground, that patient was moved onto his side. Family members are also very concerned that the patient has been very shaky and unstable while ambulating. No fevers, chills, chest pain, or shortness of breath. ROS: Constitutional: no fever, no chills HEENT: no throat pain, no dysphagia Cardiovascular: no chest pain, no palpitations Respiratory: no cough, no shortness of breath Gastrointestinal: no abdominal pain, no nausea Genitourinary: no dysuria, no hematuria Musculoskeletal: no myalgia, no arthralgia Skin: no rash, no itching Neurologic: +shakiness, +seizure PE: General: Awake, alert, and fully oriented, in no acute distress Head: Edema/contusion overlying left eye and cheek area Eyes: EOMI, sclera anicteric ENT: Moist mucus membranes, tongue fasciculation present Neck: Normal ROM, supple Lungs: Lungs clear, Normal breath sounds Cardio: Regular rhythm, S1 and S2 present Abdomen: Soft, nontender. No guarding, no rebound, no masses Extremities: Normal range of motion, Distal pulses present, tremulous SKIN: Warm, Dry, normal turgor Neurologic: Cranial nerves II through XII grossly intact. Normal speech ED Course/MDM: DDX including but not limited to alcohol withdrawal, seizure disorder, brain bleed Per my clinical assessment, patient is undergoing alcohol withdrawal; his seizure witnessed by family members likely due to alcohol withdrawal Labs, EKG, CXR CT head, cspine, facial bones Ativan 08/18/19 22:18 EKG: rate 73, QTc 438, NSR Pending CT scan; patient is at CT now 08/18/19 22:49 CBC WBC 6.2 K/mm3 (4.0-10.0) 08/18/19 21:20 RBC 4.08 M/mm3 (4.00-5.60) 08/18/19 21:20 Hgb 14.1 GM/dL (11.7-16.9) 08/18/19 21:20 Hct 39.9 % (35.4-49) 08/18/19 21:20 MCV 97.8 fl (80-96) H 08/18/19 21:20 MCH 34.6 pg (25.7-33.7) H 08/18/19 21:20 MCHC 35.4 g/dl (32.0-35.9) 08/18/19 21:20 RDW 12.2 % (11.9-15.9) 08/18/19 21:20 Plt Count 68 K/MM3 (134-434) L D 08/18/19 21:20 MPV 9.6 fl (7.5-11.1) 08/18/19 21:20 Absolute Neuts (auto) 3.9 K/mm3 (1.5-8.0) 08/18/19 21:20 Neutrophils % 62.7 % (42.8-82.8) 08/18/19 21:20 Lymphocytes % 22.6 % (8-40) D 08/18/19 21:20 Monocytes % 10.9 % (3.8-10.2) H 08/18/19 21:20 Eosinophils % 2.9 % (0-4.5) 08/18/19 21:20 Basophils % 0.9 % (0-2.0) 08/18/19 21:20 Nucleated RBC % 0 % (0-0) 08/18/19 21:20 No leukocytosis CMP Sodium 135 mmol/L (136-145) L 08/18/19 21:20 Potassium 3.6 mmol/L (3.5-5.1) 08/18/19 21:20 Chloride 102 mmol/L (98-107) 08/18/19 21:20 Carbon Dioxide 25 mmol/L (21-32) 08/18/19 21:20 Anion Gap 7 MMOL/L (8-16) L 08/18/19 21:20 BUN 4.0 mg/dL (7-18) L 08/18/19 21:20 Creatinine 0.6 mg/dL (0.55-1.3) 08/18/19 21:20 Est GFR (CKD-EPI)AfAm 155.28 08/18/19 21:20 Est GFR (CKD-EPI)NonAf 133.97 08/18/19 21:20 Random Glucose 90 mg/dL (74-106) 08/18/19 21:20 Calcium 9.5 mg/dL (8.5-10.1) 08/18/19 21:20 Total Bilirubin 1.6 mg/dL (0.2-1) H 08/18/19 21:20 AST 242 U/L (15-37) H 08/18/19 21:20 ALT 152 U/L (13-61) H 08/18/19 21:20 Alkaline Phosphatase 77 U/L (45-117) 08/18/19 21:20 Total Protein 8.3 g/dl (6.4-8.2) H 08/18/19 21:20 Albumin 4.4 g/dl (3.4-5.0) 08/18/19 21:20 Electrolytes unremarkable Normal Cr Transaminitis Elevated Tbili CT neck as read by imaging consumer recruiter: "FINDINGS: Negative for cervical spine fracture or malalignment. One or more of the following dose reduction techniques were used: automated exposure control, adjustment of the mA and/or kV according to patient size, use of iterative reconstructive technique. THIS DOCUMENT HAS BEEN ELECTRONICALLY SIGNED" CT head as read by imaging consumer recruiter:"FINDINGS: No acute intracranial abnormality. No hemorrhage. Osseous structures are intact. There are mild involutional changes somewhat out of proportion to young age. Left cheek/periorbital/frontotemporal scalp injury." SUMAYA sent; awaiting callback 08/18/19 23:[address] Garner who accepted patient for med/surg admission under Dr. Llanes 08/18/19 23:43 CT Facial bones as read by imaging consumer recruiter: "FINDINGS: Negative for orbital or facial fracture. Globes and orbits are intact. There is bruising/injury to the left periorbital region and left cheek soft tissue tissues. One or more of the following dose reduction techniques were used: automated exposure control, adjustment of the mA and/or kV according to patient size, use of iterative reconstructive technique." [facility] team is evaluating the patient 08/19/19 00:07 CXR as read by radiology: "2 views of the chest reveal clear well aerated lungs , normal mediastinum and sharp angles. The bones and soft tissues are intact. Impression: No acute chest pathology. Reported By: Xavi Davis MD 08/19/19 0639 " Past History - Past Medical History Allergies/Adverse Reactions: Allergies Allergy/AdvReac Type Severity Reaction Status Date / Time No Known Allergies Allergy Verified 08/18/19 18:49 Home Medications: Ambulatory Orders NK [No Known Home Medication] 04/02/18 COPD: No Other medical history: alcohol abuse - Immunization History Immunization Up to Date: Yes - Psycho Social/Smoking Cessation Hx Smoking History: Current every day smoker Number of Cigarettes Smoked Daily: 5 Information on smoking cessation initiated: No Hx Alcohol Use: Yes (daily) Drug/Substance Use Hx: No Hx Substance Use Treatment: No *Physical Exam - Vital Signs Last Vital Signs Temp Pulse Resp BP Pulse Ox 98.2 F 87 19 135/82 98 08/18/19 18:47 08/18/19 18:47 08/18/19 18:47 08/18/19 18:47 08/18/19 18:47 ED Treatment Course - LABORATORY CBC & Chemistry Diagram: 08/19/19 06:45 08/19/19 06:45 - ADDITIONAL ORDERS Additional order review: Laboratory Results 08/18/19 08/18/19 08/18/19 21:20 21:20 21:20 PT with INR 11.30 INR 0.96 PTT (Actin FS) Sodium 135 L Potassium 3.6 Chloride 102 Carbon Dioxide 25 Anion Gap 7 L BUN 4.0 L Creatinine 0.6 Est GFR (CKD-EPI)AfAm 155.28 Est GFR (CKD-EPI)NonAf 133.97 Random Glucose 90 Calcium 9.5 Total Bilirubin 1.6 H AST 242 H ALT 152 H Alkaline Phosphatase 77 Total Protein 8.3 H Albumin 4.4 Alcohol, Quantitative < 3 08/18/19 21:20 PT with INR INR PTT (Actin FS) 32.2 Sodium Potassium Chloride Carbon Dioxide Anion Gap BUN Creatinine Est GFR (CKD-EPI)AfAm Est GFR (CKD-EPI)NonAf Random Glucose Calcium Total Bilirubin AST ALT Alkaline Phosphatase Total Protein Albumin Alcohol, Quantitative 08/18/19 21:20 RBC 4.08 MCV 97.8 H MCHC 35.4 RDW 12.2 MPV 9.6 Neutrophils % 62.7 Lymphocytes % 22.6 D Monocytes % 10.9 H Eosinophils % 2.9 Basophils % 0.9 - RADIOLOGY Radiology Studies Ordered: Category Date Time Status CERVICAL SPINE CT W/O CONTR [CT] Stat CT Scan 08/18/19 20:[address] W/O CONTRAST [CT] Stat CT Scan 08/18/19 20:[address] WITHOUT CONTRAST [CT] Stat CT Scan 08/18/19 20:09 Ordered CHEST PA & LAT [RAD] Stat Radiology 08/18/19 20:00 Taken - Medications Given in the ED: ED Medications Discontinued Medications Generic Name Dose Route Start Last Admin Trade Name Kyreeq PRN Reason Stop Dose Admin Lorazepam 4 mg 08/18/19 20:05 08/18/19 21:40 Ativan Injection - IVPUSH 08/18/19 20:06 4 mg ONCE ONE Administration Discharge - Discharge Information Problems reviewed: Yes Clinical Impression/Diagnosis: Alcohol withdrawal seizure Qualifiers: Complication of substance-induced condition: uncomplicated Qualified Code(s): F10.230 - Alcohol dependence with withdrawal, uncomplicated Condition: Guarded - Admission Yes - Follow up/Referral - Patient Discharge Instructions - Post Discharge Activity
[2019-08-18 23:12] LABS: COCAINE, UR NEGATIVE ng/ml (CUTOFF=300); METHADONE, UR NEGATIVE ng/ml (CUTOFF=300); OPIATES, URI NEGATIVE ng/ml (CUTOFF=300); PHENCYCLIDINE,URINE NEGATIVE ng/ml (CUTOFF=25); URINE AMPHETAMINES NEGATIVE ng/ml (CUTOFF=500); URINE BARBITURATES NEGATIVE ng/ml (CUTOFF=200); URINE BENZODIAZEPINES POSITIVE ng/ml (CUTOFF=200)
[2019-08-19] MEDS ORDERED: THIAMINE HCL 200 MG/2 ML VIAL IVPB ONE (00:24)
[2019-08-19] MEDS ORDERED: MAGNESIUM SULF 50% (8.12 MEQ/2 ML-1 GM VIAL) IVPB ONE (00:25)
[2019-08-19] MEDS ORDERED: LORazepam 2 MG/ML SDV VIAL IVPUSH ONE (00:27)
[2019-08-19] MEDS ORDERED: SODIUM CHLORIDE 1,000 ML IV SCH (00:30)
[2019-08-19] MEDS ORDERED: levETIRAcetam 500 MG/5 ML INJECTION VIAL IVPB SCH (00:30)
[2019-08-19] MEDS ORDERED: LORazepam 1 MG TABLET PO PRN (00:31)
[2019-08-19] MEDS ORDERED: FOLIC ACID 5 MG/1 ML SQ ONE (00:32)
[2019-08-19] MEDS ORDERED: MAGNESIUM SULFATE IN WATER 2 GM/50 ML IVPB IVPB ONE (00:42)
[2019-08-19] MEDS ORDERED: LORazepam 2 MG/ML SDV VIAL ONE (00:42)
[2019-08-19 03:10] LABS: MAGNESIUM 2.6 mg/dL (1.8-2.4); PHOSPHOROUS 3.8 mg/dL (2.5-4.9)
--- NOTE | 2019-08-19 03:44 | HP ---
CHIEF COMPLAINT: Seizure, alcohol withdrawal PCP: none HISTORY OF PRESENT ILLNESS: Patient is a 33 year old male PMH of alcohol abuse who presents s/p tremors and imbalance for one day. Pt was admitted on 08/16/19 for seizure-like activity attributed to alcohol withdrawal. He was started on ativan protocol and seen by neuro who did not recommend any anti-epileptics. Pt eloped on 08/17/19 and drank 5 beers that evening. Last night, pt began experiencing tremors, imbalance , agitation, hallucinations (witnessed by family). He did not fall (however of note, pt fell during event for prior admission). Denies nausea, vomiting, seizures, abd pain. Recent Travel: denies PAST MEDICAL HISTORY: Denies PAST SURGICAL HISTORY: Denies Social History: Smokin cigarettes/day Alcohol: 10 beers/day Drugs: denies Allergies No Known Allergies Allergy (Verified 08/18/19 18:49) HOME MEDICATIONS: Home Medications Medication Instructions Recorded NK [No Known Home Medication] 04/02/18 REVIEW OF SYSTEMS CONSTITUTIONAL: Absent: fever, chills, diaphoresis, generalized weakness, malaise, loss of appetite, weight change HEENT: Absent: rhinorrhea, nasal congestion, throat pain, throat swelling, difficulty swallowing, mouth swelling, ear pain, eye pain, visual changes CARDIOVASCULAR: Absent: chest pain, syncope, palpitations, irregular heart rate, lightheadedness , peripheral edema RESPIRATORY: Absent: cough, shortness of breath, dyspnea with exertion, orthopnea, wheezing, stridor, hemoptysis GASTROINTESTINAL: Absent: abdominal pain, abdominal distension, nausea, vomiting, diarrhea, constipation, melena, hematochezia GENITOURINARY: Absent: dysuria, frequency, urgency, hesitancy, hematuria, flank pain, genital pain MUSCULOSKELETAL: Absent: myalgia, arthralgia, joint swelling, back pain, neck pain SKIN: Absent: rash, itching, pallor HEMATOLOGIC/IMMUNOLOGIC: Absent: easy bleeding, easy bruising, lymphadenopathy, frequent infections ENDOCRINE: Absent: unexplained weight gain, unexplained weight loss, heat intolerance, cold intolerance NEUROLOGIC: headache, seizure Absent: focal weakness or paresthesias, dizziness, unsteady gait, mental status changes, bladder or bowel incontinence PSYCHIATRIC: Absent: anxiety, depression, suicidal or homicidal ideation, hallucinations. PHYSICAL EXAMINATION Vital Signs - 24 hr 1208/18/19 08/19/19 18:47 19:55 03:18 Temperature 98.2 F 98.4 F 97.6 F Pulse Rate 87 Pulse Rate [ 86 86 Left Apical] Respiratory 19 19 18 Rate Blood Pressure 135/82 Blood Pressure 118/98 139/88 [Right Arm] O2 Sat by Pulse 98 100 99 Oximetry (%) GENERAL: Awake, alert, and oriented. Agitated and tremulous. HEAD: 4cm hematoma on L forehead. EYES: Periorbital ecchymosis from prior fall, L eye swollen shut. Pupils equal, round and reactive to light, sclera mildly icteric. No lid lag. EARS, NOSE, THROAT: Ears normal, nares patent, oropharynx clear without exudates. Moist mucous membranes. Tongue fasciculations NECK: Normal range of motion, supple without lymphadenopathy, JVD, or masses. LUNGS: Breath sounds equal, clear to auscultation bilaterally. No wheezes, and no crackles. No accessory muscle use. HEART: Regular rate and rhythm, normal S1 and S2 without murmur, rub or gallop. ABDOMEN: Soft, nontender, not distended, normoactive bowel sounds, no guarding, no rebound, no masses. No hepatomegaly or splenomegaly. MUSCULOSKELETAL: Normal range of motion at all joints. No bony deformities or tenderness. No CVA tenderness. UPPER EXTREMITIES: 2+ pulses, warm, well-perfused. No cyanosis. No clubbing. No peripheral edema. LOWER EXTREMITIES: 2+ pulses, warm, well-perfused. No calf tenderness. No peripheral edema. NEUROLOGICAL: Cranial nerves II-XII intact. Muffled speech. Gait not observed. Tremor Laboratory Results - last 24 hr CBC, BMP 08/18/19 21:20 08/18/19 21:20 ASSESSMENT/PLAN: Patient is a 33 year old male with PMH of alcohol abuse who presents s/p tremors and imbalance. #Alcohol withdrawal Received 2mg ativan and started on ativan protocol Will give thiamine, folic acid. After receiving thiamine, start on D5-LR @ 150ml/hr Will give IV Mg, cont to monitor Mg/Ph CIWA protocol, frequent neuro monitoring Q2H, monitor for withdrawals Neurology consulted (Dr. Cat) Fall precautions CT head: no acute pathology CT c-spine: no fractures CT facial: no fractures Encourage alcohol cessation on dispo, recommend detox program #Elevated bilirubin and transaminitis T bili: 1.6, AST: 242, ALT: 152 Likely 2/2 alcohol abuse RUQ US on last admissin: fatty infiltration of the liver, no noted splenomegaly, no acute pathology #Thrombocytopenia Platelets: 68 (49 on last admission) Likely 2/2 alcohol abuse Avoid heparin for DVT ppx #FEN NPO for now IV D5-LR @ 150ml/hr #DVT ppx SCDs #Dispo Monitor on med-surg Visit type - Emergency Visit Emergency Visit: Yes ED Registration Date: 08/18/19 Care time: The patient presented to the Emergency Department on the above date and was hospitalized for further evaluation of their emergent condition. - New Patient This patient is new to me today: Yes Date on this admission: 08/19/19 - Critical Care Critical Care patient: No ATTENDING PHYSICIAN STATEMENT I saw and evaluated the patient. I reviewed the resident's note and discussed the case with the resident. I agree with the resident's findings and plan as documented. SUBJECTIVE: OBJECTIVE: ASSESSMENT AND PLAN:
[2019-08-19 05:02] VITALS: BMI 20.3
[2019-08-19] MEDS ORDERED: PNEUMOC 13-VAL CONJ-DIP CRM/PF 0.5 ML DISP.SYRIN IM ONE (05:02)
[2019-08-19] MEDS ORDERED: HEPARIN NA (PORCINE) 5,000 UNITS/ML 1ML VIAL SQ SCH (06:00)
[2019-08-19 07:11] LABS: EOS % 4.9 % (0-4.5); HEMATOCRIT 36.4 % (35.4-49); LYMPH % 25.5 % (8-40); MCH 34.9 pg (25.7-33.7); MCHC 35.6 g/dl (32.0-35.9); MEAN CELL VOLUME 97.9 fl (80-96); MEAN PLT VOLUME 9.6 fl (7.5-11.1); NEUT % 55.6 % (42.8-82.8); PLATELET COUNT 63 K/MM3 (134-434); RBC 3.71 M/mm3 (4.00-5.60); WHITE BLOOD COUNT 4.6 K/mm3 (4.0-10.0)
[2019-08-19] MEDS ORDERED: PNEUMOCOCCAL 23 VACCINE 0.5 ML VIAL IM ONE (07:15)
[2019-08-19 07:51] LABS: ALBUMIN 3.8 g/dl (3.4-5.0); BILIRUBIN,TOTAL 1.6 mg/dL (0.2-1); BLOOD UREA NITROGEN 5.2 mg/dL (7-18); CALCIUM 8.7 mg/dL (8.5-10.1); CREATININE 0.5 mg/dL (0.55-1.3); POTASSIUM 3.4 mmol/L (3.5-5.1)
[2019-08-19] MEDS ORDERED: FOLIC ACID INJECTION - 1 MG, THIAMINE HCL 100 MG, MULTIVIT INJECTION ADULT 10 ML in SOD... IVPB ONE ×2 (08:00→10:00)
[2019-08-19] MEDS ORDERED: POTASSIUM CHLORIDE TABS 20 MEQ TABLET.ER (FP) PO ONE (08:23)
[2019-08-19] MEDS: FOLIC ACID INJECTION - 1 MG, THIAMINE HCL 100 MG, MULTIVIT INJECTION ADULT 10 ML in SOD... IVPB ONE ×2 (09:43→09:56)
[2019-08-19] MEDS: DEXTROSE 5%-LACTATED RINGERS 1,000 ML IV SCH ×2 (09:44→23:57)
[2019-08-19] MEDS ORDERED: FLU VACCINE QUAD 60 MCG/0.5 ML (MDV 19-20) IM ONE (10:00)
--- NOTE | 2019-08-19 10:29 | EKG ---
Test Reason : Blood Pressure : / mmHG Vent. Rate : 073 BPM Atrial Rate : 073 BPM P-R Int : 134 ms QRS Dur : 098 ms QT Int : 398 ms P-R-T Axes : 064 075 058 degrees QTc Int : 438 ms NORMAL SINUS RHYTHM POSSIBLE INFERIOR INFARCT , AGE UNDETERMINED ABNORMAL ECG WHEN COMPARED WITH ECG OF 16-AUG-2019 19:08, NO SIGNIFICANT CHANGE WAS FOUND Confirmed by CHERELLE SALAS, VIVIAN ([id number]) on 08/19/2019 10:28:55 AM Referred By: Confirmed By:VIVIAN VILLARREAL MD
--- NOTE | 2019-08-19 11:50 | CONSULT ---
Consult Detox [facility] - Alcohol/Substance Use Hx Alcohol Use: Yes (daily)
--- NOTE | 2019-08-19 12:07 | PN ---
Physical Exam: SUBJECTIVE: Patient seen and examined at the bedside. Patient states that he had another fall prior to this admission. Endorsed mild tremors. Denied cp, sob , abd pain, n/v/c/d, fever, chills, headaches, dizziness, lightheadedness, hallucinations, anxiety, numbness, tingling. OBJECTIVE: Vital Signs Period Temp Pulse Resp BP Sys/Art Pulse Ox Last 24 Hr 97.6 F-98.4 F 72-87 18-19 118-139/74-98 97-100 GENERAL: The patient is awake, alert, and fully oriented, in no acute distress. HEAD: Normal with no signs of trauma. EYES: Extraocular movements intact, L eye with subconjunctival hemorrhage. Periorbital ecchymosis around both eyes. ENT: Oropharynx clear without exudates, dry mucous membranes. LUNGS: Breath sounds equal, clear to auscultation bilaterally, no wheezes, no crackles, no accessory muscle use. HEART: Regular rate and rhythm, S1, S2 without murmur, rub. ABDOMEN: Soft, nontender, nondistended, normoactive bowel sounds, no guarding, no rebound, no masses. EXTREMITIES: 2+ pulses, warm, well-perfused, no edema. NEUROLOGICAL: Cranial nerves II through XII grossly intact. 5/5 muscle strength bilaterally upper and lower extremities. SKIN: Warm, dry, normal turgor. Laboratory Results - last 24 hr 08/18/19 08/18/19 08/18/19 21:20 21:20 21:20 WBC 6.2 RBC 4.08 Hgb 14.1 Hct 39.9 MCV 97.8 H MCH 34.6 H MCHC 35.4 RDW 12.2 Plt Count 68 L D MPV 9.6 Absolute Neuts (auto) 3.9 Neutrophils % 62.7 Lymphocytes % 22.6 D Monocytes % 10.9 H Eosinophils % 2.9 Basophils % 0.9 Nucleated RBC % 0 PT with INR INR PTT (Actin FS) 32.2 Sodium Potassium Chloride Carbon Dioxide Anion Gap BUN Creatinine Est GFR (CKD-EPI)AfAm Est GFR (CKD-EPI)NonAf Random Glucose Calcium Phosphorus Magnesium Total Bilirubin AST ALT Alkaline Phosphatase Creatine Kinase Creatine Kinase Index CK-MB (CK-2) Troponin I Total Protein Albumin Opiates Screen Methadone Screen Barbiturate Screen Phencyclidine Screen Ur Amphetamines Screen MDMA (Ecstasy) Screen Benzodiazepines Screen Cocaine Screen U Marijuana (THC) Screen Alcohol, Quantitative < 3 08/18/19 08/18/19 08/18/19 21:20 21:20 22:55 WBC RBC Hgb Hct MCV MCH MCHC RDW Plt Count MPV Absolute Neuts (auto) Neutrophils % Lymphocytes % Monocytes % Eosinophils % Basophils % Nucleated RBC % PT with INR 11.30 INR 0.96 PTT (Actin FS) Sodium 135 L Potassium 3.6 Chloride 102 Carbon Dioxide 25 Anion Gap 7 L BUN 4.0 L Creatinine 0.6 Est GFR (CKD-EPI)AfAm 155.28 Est GFR (CKD-EPI)NonAf 133.97 Random Glucose 90 Calcium 9.5 Phosphorus Magnesium Total Bilirubin 1.6 H AST 242 H ALT 152 H Alkaline Phosphatase 77 Creatine Kinase Creatine Kinase Index CK-MB (CK-2) Troponin I Total Protein 8.3 H Albumin 4.4 Opiates Screen Negative Methadone Screen Negative Barbiturate Screen Negative Phencyclidine Screen Negative Ur Amphetamines Screen Negative MDMA (Ecstasy) Screen Negative Benzodiazepines Screen Positive A* Cocaine Screen Negative U Marijuana (THC) Screen Negative Alcohol, Quantitative 08/19/19 08/19/19 08/19/19 02:50 06:45 06:45 WBC 4.6 RBC 3.71 L Hgb 13.0 Hct 36.4 MCV 97.9 H MCH 34.9 H MCHC 35.6 RDW 12.0 Plt Count 63 L MPV 9.6 Absolute Neuts (auto) 2.6 Neutrophils % 55.6 Lymphocytes % 25.5 Monocytes % 13.0 H Eosinophils % 4.9 H Basophils % 1.0 Nucleated RBC % 0 PT with INR INR PTT (Actin FS) Sodium 138 Potassium 3.4 L Chloride 104 Carbon Dioxide 26 Anion Gap 7 L BUN 5.2 L Creatinine 0.5 L Est GFR (CKD-EPI)AfAm 167.36 Est GFR (CKD-EPI)NonAf 144.40 Random Glucose 80 Calcium 8.7 Phosphorus 3.8 Magnesium 2.6 H Total Bilirubin 1.6 H AST 209 H ALT 134 H Alkaline Phosphatase 62 Creatine Kinase 1631 H 1636 H Creatine Kinase Index 0.1 0.1 CK-MB (CK-2) 3.0 2.8 Troponin I < 0.02 Total Protein 7.0 Albumin 3.8 Opiates Screen Methadone Screen Barbiturate Screen Phencyclidine Screen Ur Amphetamines Screen MDMA (Ecstasy) Screen Benzodiazepines Screen Cocaine Screen U Marijuana (THC) Screen Alcohol, Quantitative < 3 Active Medications Generic Name Dose Route Start Last Admin Trade Name Michelle PRN Reason Stop Dose Admin Folic Acid 1 mg 08/20/19 10:00 Folic Acid - PO DAILY TANI Dextrose/Lactated Ringer's 1,000 mls @ 150 mls/hr 08/19/19 03:30 08/19/19 09: 44 D5-Lr - IV 150 mls/hr ASDIR TANI Administration Lorazepam 2 mg 08/19/19 23:00 Ativan PO 08/20/19 23:01 0500,1100,1700,2300 TANI Lorazepam 0.5 mg 08/22/19 05:00 Ativan - PO 08/22/19 23:01 Q6H TANI Lorazepam 0.5 mg 08/22/19 00:00 Ativan - PO Q4H PRN Symptoms of Withdrawal Lorazepam 0.5 mg 08/23/19 05:00 Ativan - PO 08/23/19 05:01 ONCE ONE Lorazepam 1 mg 08/21/19 05:00 Ativan - PO 08/21/19 23:01 0500,1100,1700,2300 TANI Lorazepam 1 mg 08/19/19 00:31 Ativan - PO 08/21/19 23:59 Q4H PRN Symptoms of Withdrawal Multivitamins/Minerals/Vitamin C 1 tab 08/20/19 10:00 Tab-A-Vit - PO DAILY ON LICENSE OF [facility] Thiamine HCl 100 mg 08/20/19 10:00 Vitamin B1 - PO DAILY ON LICENSE OF [facility] ASSESSMENT/PLAN: Gaurav Teixeira a 33 year old male with a past medical history of alcohol abuse who is admitted for alcohol withdrawal. Alcohol withdrawal - Continue ativan protocol - given banana bag, started on thiamine, folic acid, MVI - frequent neuro monitoring Q2H, monitor for withdrawals - Addiction medicine consulted - Fall precautions - CT head with no acute pathology - CT c-spine no noted fractures - CT facial no noted fractures - if patient agreeable to alcohol detox can offer [facility] as option Elevated bilirubin and transaminitis - improving - Likely 2/2 alcohol abuse - RUQ US on last admission: fatty infiltration of the liver, no noted splenomegaly Elevated CPK - CK 1631--> 1636 - continue fluids - repeat in AM Thrombocytopenia - Likely 2/2 alcohol abuse - continue to monitor, improved from previous admission FEN - IV D5-LR at 150ml/hr, can switch to LR upon good oral intake - continue to monitor electrolytes and replete as necessary, hypokalemia noted and repleted - regular diet DVT ppx - SCDs Disposition - continue to monitor on med-surg Visit type - Emergency Visit Emergency Visit: Yes ED Registration Date: 08/18/19 Care time: The patient presented to the Emergency Department on the above date and was hospitalized for further evaluation of their emergent condition. - New Patient This patient is new to me today: Yes Date on this admission: 08/19/19 - Critical Care Critical Care patient: No
--- NOTE | 2019-08-19 13:36 | CONSULT ---
Consult Detox [facility] Reason for Current Admission/Consult: Patient with Alcohol Dependence with withdrawals Referred by:: blade ames - History History of Present Illness: Patient is a 33 year old male PMH of alcohol abuse who presents s/p tremors and imbalance for one day. Pt was admitted on 08/16/19 for seizure-like activity attributed to alcohol withdrawal. He was started on ativan protocol and seen by neuro who did not recommend any anti-epileptics. Pt eloped on 08/17/19 and drank 5 beers that evening. Last night, pt began experiencing tremors, imbalance , agitation, hallucinations (witnessed by family). He did not fall (however of note, pt fell during event for prior admission). Denies nausea, vomiting, seizures, abd pain. He does not deny use of alcohol and is drinking a lot and most recently has been binging. He is open to going to Detox and Rehab. - History Source History Provided By: Patient, Significant Other Limitations to Obtaining History: No Limitations - Alcohol/Substance Use Hx Alcohol Use: Yes (daily) Hx Substance Use: No Hx Substance Use Treatment: Yes (multiple detoxes in the past) - Significant Medical Findings: GENERAL: Awake, alert, and oriented. HEAD: 4cm hematoma on L forehead. EYES: Periorbital ecchymosis from prior fall, bilaterally. Pupils equal, round and reactive to light, sclera mildly icteric. No lid lag. EARS, NOSE, THROAT: Ears normal, nares patent, oropharynx clear without exudates. Moist mucous membranes. Tongue fasciculations NECK: Normal range of motion, supple without lymphadenopathy, JVD, or masses. LUNGS: Breath sounds equal, clear to auscultation bilaterally. No wheezes, and no crackles. No accessory muscle use. HEART: Regular rate and rhythm, normal S1 and S2 without murmur, rub or gallop. ABDOMEN: Soft, nontender, not distended, normoactive bowel sounds, no guarding, no rebound, no masses. No hepatomegaly or splenomegaly. MUSCULOSKELETAL: Normal range of motion at all joints. No bony deformities or tenderness. No CVA tenderness. UPPER EXTREMITIES: 2+ pulses, warm, well-perfused. No cyanosis. No clubbing. No peripheral edema. LOWER EXTREMITIES: 2+ pulses, warm, well-perfused. No calf tenderness. No peripheral edema. NEUROLOGICAL: Cranial nerves II-XII intact. Muffled speech. Gait not observed. Tremor CIWA Score - CIWA Score Nausea/Vomitin-Mild Nausea/No Vomiting Muscle Tremors: 1-None Visible, but [place] Anxiety: 3 Agitation: 2 Paroxysmal Sweats: 1-Minimal Palms Moist Orientation: 1-Uncertain about Date Tacttile Disturbances: 0-None Auditory Disturbances: 0-None Visual Disturbances: 0-None Headache: 3-Moderate CIWA-Ar Total Score: 12 Assessment Plan - Plan Plan: 1. Alcohol Dependence with withdrawals: Once patient is medically stable he can be transferred to complete detox. If he completes detox while at [facility], he can then be transferred to [facility] for rehab. Ativan Detox protocol should be continued till completion, since he has a history of liver disease. Thank you for this consult. Dr. Spence - Medication Detox Regimen/Protocol: Ativan
--- NOTE | 2019-08-19 15:01 | PN ---
Teaching Attending Note Name of Resident: Xavi Devine ATTENDING PHYSICIAN STATEMENT I saw and evaluated the patient. I reviewed the resident's note and discussed the case with the resident. I agree with the resident's findings and plan as documented with exceptions below. SUBJECTIVE: Patient seen and examined. denies any pain, or anxiety currently, no complaints. OBJECTIVE: Vital Signs Period Temp Pulse Resp BP Sys/Art Pulse Ox Last 24 Hr 97.6 F-98.4 F 72-87 18-19 118-139/74-98 97-100 Intake & Output 08/16/19 08/17/19 08/18/19 08/19/19 23:59 23:59 23:59 23:59 Intake Total 1075 Balance 1075 Weight 130 lb 118 lb 6.4 oz General: lying in bed, no acute distress HEENT: "racoon eyes", bilateral nikole-orbital ecchymosis, EOMI, left lower quadrant subconjunctival haemorrhage, PERRL, no pain with eye movements Left scalp hematoma with scab Chest: CTAB, no rales or wheezing Abdomen:soft, NT, ND Extremities: mild tremors, no edema Home Medications Medication Instructions Recorded NK [No Known Home Medication] 04/02/18 Active Medications Folic Acid (Folic Acid -) 1 mg PO DAILY [facility] Dextrose/Lactated Ringer's (D5-Lr -) 1,000 mls @ 150 mls/hr IV ASDIR [facility] Last Admin: 08/19/19 09:44 Dose: 150 mls/hr Lorazepam (Ativan) 2 mg PO 0500,1100,1700,2300 [facility] Stop: 08/20/19 23:01 Lorazepam (Ativan -) 0.5 mg PO Q6H [facility] Stop: 08/22/19 23:01 Lorazepam (Ativan -) 0.5 mg PO Q4H PRN PRN Reason: Symptoms of Withdrawal Lorazepam (Ativan -) 0.5 mg PO ONCE ONE Stop: 08/23/19 05:01 Lorazepam (Ativan -) 1 mg PO 0500,1100,1700,2300 [facility] Stop: 08/21/19 23:01 Lorazepam (Ativan -) 1 mg PO Q4H PRN PRN Reason: Symptoms of Withdrawal Stop: 08/21/19 23:59 Multivitamins/Minerals/Vitamin C (Tab-A-Vit -) 1 tab PO DAILY [facility] Thiamine HCl (Vitamin B1 -) 100 mg PO DAILY [facility] Laboratory Results - last 24 hr 08/18/19 08/18/19 08/18/19 21:20 21:20 21:20 WBC 6.2 RBC 4.08 Hgb 14.1 Hct 39.9 MCV 97.8 H MCH 34.6 H MCHC 35.4 RDW 12.2 Plt Count 68 L D MPV 9.6 Absolute Neuts (auto) 3.9 Neutrophils % 62.7 Lymphocytes % 22.6 D Monocytes % 10.9 H Eosinophils % 2.9 Basophils % 0.9 Nucleated RBC % 0 PT with INR INR PTT (Actin FS) 32.2 Sodium Potassium Chloride Carbon Dioxide Anion Gap BUN Creatinine Est GFR (CKD-EPI)AfAm Est GFR (CKD-EPI)NonAf Random Glucose Calcium Phosphorus Magnesium Total Bilirubin AST ALT Alkaline Phosphatase Creatine Kinase Creatine Kinase Index CK-MB (CK-2) Troponin I Total Protein Albumin Opiates Screen Methadone Screen Barbiturate Screen Phencyclidine Screen Ur Amphetamines Screen MDMA (Ecstasy) Screen Benzodiazepines Screen Cocaine Screen U Marijuana (THC) Screen Alcohol, Quantitative < 3 08/18/19 08/18/19 08/18/19 21:20 21:20 22:55 WBC RBC Hgb Hct MCV MCH MCHC RDW Plt Count MPV Absolute Neuts (auto) Neutrophils % Lymphocytes % Monocytes % Eosinophils % Basophils % Nucleated RBC % PT with INR 11.30 INR 0.96 PTT (Actin FS) Sodium 135 L Potassium 3.6 Chloride 102 Carbon Dioxide 25 Anion Gap 7 L BUN 4.0 L Creatinine 0.6 Est GFR (CKD-EPI)AfAm 155.28 Est GFR (CKD-EPI)NonAf 133.97 Random Glucose 90 Calcium 9.5 Phosphorus Magnesium Total Bilirubin 1.6 H AST 242 H ALT 152 H Alkaline Phosphatase 77 Creatine Kinase Creatine Kinase Index CK-MB (CK-2) Troponin I Total Protein 8.3 H Albumin 4.4 Opiates Screen Negative Methadone Screen Negative Barbiturate Screen Negative Phencyclidine Screen Negative Ur Amphetamines Screen Negative MDMA (Ecstasy) Screen Negative Benzodiazepines Screen Positive A* Cocaine Screen Negative U Marijuana (THC) Screen Negative Alcohol, Quantitative 08/19/19 08/19/19 08/19/19 02:50 06:45 06:45 WBC 4.6 RBC 3.71 L Hgb 13.0 Hct 36.4 MCV 97.9 H MCH 34.9 H MCHC 35.6 RDW 12.0 Plt Count 63 L MPV 9.6 Absolute Neuts (auto) 2.6 Neutrophils % 55.6 Lymphocytes % 25.5 Monocytes % 13.0 H Eosinophils % 4.9 H Basophils % 1.0 Nucleated RBC % 0 PT with INR INR PTT (Actin FS) Sodium 138 Potassium 3.4 L Chloride 104 Carbon Dioxide 26 Anion Gap 7 L BUN 5.2 L Creatinine 0.5 L Est GFR (CKD-EPI)AfAm 167.36 Est GFR (CKD-EPI)NonAf 144.40 Random Glucose 80 Calcium 8.7 Phosphorus 3.8 Magnesium 2.6 H Total Bilirubin 1.6 H AST 209 H ALT 134 H Alkaline Phosphatase 62 Creatine Kinase 1631 H 1636 H Creatine Kinase Index 0.1 0.1 CK-MB (CK-2) 3.0 2.8 Troponin I < 0.02 Total Protein 7.0 Albumin 3.8 Opiates Screen Methadone Screen Barbiturate Screen Phencyclidine Screen Ur Amphetamines Screen MDMA (Ecstasy) Screen Benzodiazepines Screen Cocaine Screen U Marijuana (THC) Screen Alcohol, Quantitative < 3 CT head/C-spine/Face results reviewed ASSESSMENT AND PLAN: 33 yom with ETOH abuse admitted 08/16 with seizure, alcohol withdrawal when left AMA, re-admitted with similar symptoms. -Reported repeat Seizure, suspect alcohol withdrawal related (24 hours after last drink) -Acute alcohol withdrawal -fall/Seizure with nikole-orbital ecchymosis/Scalp hematoma -ETOH abuse/dependence -Abnormal LFTs, suspect alcoholic hepatitis -Thrombocytopenia from ETOH abuse related bone marrow suppression_+/- sequestration Plan: Ativan detox protocol Detox consult noted, plan for transfer to [facility] if patient agreable. LFTs improved. Trauma w/u in ED neg for concerns. Platelets stable. DVTPXP SCDs Dispo to [facility] in 24 hours if no new concerns. Discussed with patient.
[2019-08-19] MEDS: LORazepam 1 MG TABLET PO SCH (23:10)
[2019-08-20] MEDS: DEXTROSE 5%-LACTATED RINGERS 1,000 ML IV SCH ×2 (05:54→05:57)
[2019-08-20] MEDS: LORazepam 1 MG TABLET PO SCH ×4 (05:58→22:15)
[2019-08-20 08:26] LABS: HEMATOCRIT 36.6 % (35.4-49); HEMOGLOBIN 12.8 GM/dL (11.7-16.9); MCH 34.6 pg (25.7-33.7); MCHC 35.1 g/dl (32.0-35.9); MEAN CELL VOLUME 98.6 fl (80-96); MEAN PLT VOLUME 9.7 fl (7.5-11.1); PLATELET COUNT 79 K/MM3 (134-434); RBC 3.71 M/mm3 (4.00-5.60); RDW 12.1 % (11.9-15.9); WHITE BLOOD COUNT 4.8 K/mm3 (4.0-10.0)
[2019-08-20 09:05] LABS: ALBUMIN 3.7 g/dl (3.4-5.0); ALK PHOS 77 U/L (45-117); ANION GAP 7 MMOL/L (8-16); BILIRUBIN,TOTAL 1.5 mg/dL (0.2-1); BLOOD UREA NITROGEN 5.1 mg/dL (7-18); CALCIUM 8.9 mg/dL (8.5-10.1); CHLORIDE 101 mmol/L (98-107); CO2 27 mmol/L (21-32); CREATININE 0.5 mg/dL (0.55-1.3); GLUCOSE,RANDOM 110 mg/dL (74-106); MAGNESIUM 1.9 mg/dL (1.8-2.4); POTASSIUM 3.6 mmol/L (3.5-5.1); SGOT/AST 172 U/L (15-37); SGPT/ALT 125 U/L (13-61); SODIUM 135 mmol/L (136-145)
[2019-08-20] MEDS: FOLIC ACID 1 MG TABLET (FP) PO SCH (09:46)
[2019-08-20] MEDS: THIAMINE HCL 100 MG TABLET (FP) PO SCH (09:46)
[2019-08-20] MEDS: MULTIVITAMINS (DAILY MVI) TABLET (FP) PO SCH (09:46)
[2019-08-20] MEDS: SODIUM CHLORIDE 3,000 ML IV STA ×2 (11:00→12:00)
--- NOTE | 2019-08-20 14:16 | PN ---
Teaching Attending Note Name of Resident: Xavi Devine ATTENDING PHYSICIAN STATEMENT I saw and evaluated the patient. I reviewed the resident's note and discussed the case with the resident. I agree with the resident's findings and plan as documented with exceptions below. SUBJECTIVE: Patient seen and examined. Walked with PT, more awake and interactive today. OBJECTIVE: Vital Signs Period Temp Pulse Resp BP Sys/Art Pulse Ox Last 24 Hr 97.9 F-98.3 F 74-94 18-20 112-151/60-87 99-99 Intake & Output 08/17/19 08/18/19 08/19/19 08/20/19 23:59 23:59 23:59 23:59 Intake Total 1675 1200 Output Total 950 Balance 1675 250 Weight 130 lb 118 lb 6.4 oz General: sitting at edge of bed, no acute distress HEENT: resolvig nikole-orbital ecchymosis, EOMI, left conjunctival haemorrhage, PERRL Chest: CTAB, no rales or wheezing Abdomen:Soft, NT Extremities: mild tremors Home Medications Medication Instructions Recorded NK [No Known Home Medication] 04/02/18 Active Medications Folic Acid (Folic Acid -) 1 mg PO DAILY [facility] Last Admin: 08/20/19 09:46 Dose: 1 mg Dextrose/Lactated Ringer's (D5-Lr -) 1,000 mls @ 150 mls/hr IV ASDIR [facility] Last Admin: 08/20/19 05:57 Dose: 150 mls/hr Lorazepam (Ativan -) 2 mg PO 0500,1100,1700,2300 [facility] Stop: 08/20/19 23:01 Last Admin: 08/20/19 11:40 Dose: 2 mg Lorazepam (Ativan -) 0.5 mg PO Q6H [facility] Stop: 08/22/19 23:01 Lorazepam (Ativan -) 0.5 mg PO Q4H PRN PRN Reason: Symptoms of Withdrawal Lorazepam (Ativan -) 0.5 mg PO ONCE ONE Stop: 08/23/19 05:01 Lorazepam (Ativan -) 1 mg PO 0500,1100,1700,2300 [facility] Stop: 08/21/19 23:01 Lorazepam (Ativan -) 1 mg PO Q4H PRN PRN Reason: Symptoms of Withdrawal Stop: 08/21/19 23:59 Last Admin: 08/20/19 09:47 Dose: 1 mg Multivitamins/Minerals/Vitamin C (Tab-A-Vit -) 1 tab PO DAILY [facility] Last Admin: 08/20/19 09:46 Dose: 1 tab Thiamine HCl (Vitamin B1 -) 100 mg PO DAILY [facility] Last Admin: 08/20/19 09:46 Dose: 100 mg Laboratory Results - last 24 hr 08/20/19 08/20/19 07:09 07:09 WBC 4.8 RBC 3.71 L Hgb 12.8 Hct 36.6 MCV 98.6 H MCH 34.6 H MCHC 35.1 RDW 12.1 Plt Count 79 L D MPV 9.7 Sodium 135 L Potassium 3.6 Chloride 101 Carbon Dioxide 27 Anion Gap 7 L BUN 5.1 L Creatinine 0.5 L Est GFR (CKD-EPI)AfAm 167.36 Est GFR (CKD-EPI)NonAf 144.40 Random Glucose 110 H Calcium 8.9 Magnesium 1.9 Total Bilirubin 1.5 H AST 172 H ALT 125 H Alkaline Phosphatase 77 Creatine Kinase 3350 H Creatine Kinase Index No Result Required. CK-MB (CK-2) < 1.0 Total Protein 7.0 Albumin 3.7 ASSESSMENT AND PLAN: 33 yom with ETOH abuse admitted 08/16 with seizure, alcohol withdrawal when left AMA, re-admitted with similar symptoms. -Reported repeat Seizure, suspect alcohol withdrawal related (24 hours after last drink) -Acute alcohol withdrawal -fall/Seizure with nikole-orbital ecchymosis/Scalp hematoma -Rhabdomyolysis, suspect from fall/seizure -ETOH abuse/dependence -Abnormal LFTs, suspect alcoholic hepatitis -Thrombocytopenia from ETOH abuse related bone marrow suppression Plan: Ativan detox protocol mental status improving, patient agreable to detox, d/c to [facility] and [facility] if a candidate. CPK rising, aggressive hydration, trend for now. LFTs improved. Trauma w/u in ED neg for concerns. Platelets improved. DVTPXP SCDs Dispo to [facility] for acute detox pending arrangements and medical improvement. Discussed with patient and social work.
[2019-08-20] MEDS ORDERED: LACTATED RINGERS SOLUTION 1,000 ML/1,000 ML INFUS.BAG IV SCH ×2 (14:45→14:48)
--- NOTE | 2019-08-20 14:46 | PN ---
Physical Exam: SUBJECTIVE: Patient seen and examined at the bedside. Noted that he had a headache. Denied other acute complaints of cp, sob, abd pain, n/v/c/d, numbness , tingling, hallucinations, visual changes, photophobia, phonophobia. Endorsed good appetite. OBJECTIVE: Vital Signs Period Temp Pulse Resp BP Sys/Art Pulse Ox Last 24 Hr 97.9 F-98.3 F 74-94 18-20 112-151/60-87 99-99 GENERAL: The patient is awake, alert, and fully oriented, in no acute distress. Mildly tremulous HEAD: Normal with no signs of trauma. EYES: Extraocular movements intact, L eye with subconjunctival hemorrhage. Periorbital ecchymosis around both eyes. ENT: Oropharynx clear without exudates, moist mucous membranes. LUNGS: Breath sounds equal, clear to auscultation bilaterally, no wheezes, no crackles, no accessory muscle use. HEART: Regular rate and rhythm, S1, S2 without murmur, rub. ABDOMEN: Soft, nontender, nondistended, normoactive bowel sounds, no guarding, no rebound, no masses. EXTREMITIES: 2+ pulses, warm, well-perfused, no edema. NEUROLOGICAL: Cranial nerves II through XII grossly intact. 5/5 muscle strength bilaterally upper and lower extremities. SKIN: Warm, dry, normal turgor. Laboratory Results - last 24 hr 08/20/19 08/20/19 07:09 07:09 WBC 4.8 RBC 3.71 L Hgb 12.8 Hct 36.6 MCV 98.6 H MCH 34.6 H MCHC 35.1 RDW 12.1 Plt Count 79 L D MPV 9.7 Sodium 135 L Potassium 3.6 Chloride 101 Carbon Dioxide 27 Anion Gap 7 L BUN 5.1 L Creatinine 0.5 L Est GFR (CKD-EPI)AfAm 167.36 Est GFR (CKD-EPI)NonAf 144.40 Random Glucose 110 H Calcium 8.9 Magnesium 1.9 Total Bilirubin 1.5 H AST 172 H ALT 125 H Alkaline Phosphatase 77 Creatine Kinase 3350 H Creatine Kinase Index No Result Required. CK-MB (CK-2) < 1.0 Total Protein 7.0 Albumin 3.7 Active Medications Generic Name Dose Route Start Last Admin Trade Name Freq PRN Reason Stop Dose Admin Folic Acid 1 mg 08/20/19 10:00 08/20/19 09:46 Folic Acid - PO 1 mg DAILY [facility] Administration Lactated Ringer's 1,000 ml in 1,000 mls @ 125 mls/hr 08/20/19 14:45 Lactated Ringers Solution IV ASDIR [facility] Lorazepam 2 mg 08/19/19 23:00 08/20/19 11:40 Ativan - PO 08/20/19 23:01 2 mg 0500,1100,1700,2300 [facility] Administration Lorazepam 0.5 mg 08/22/19 05:00 Ativan - PO 08/22/19 23:01 Q6H [facility] Lorazepam 0.5 mg 08/22/19 00:00 Ativan - PO Q4H PRN Symptoms of Withdrawal Lorazepam 0.5 mg 08/23/19 05:00 Ativan - PO 08/23/19 05:01 ONCE ONE Lorazepam 1 mg 08/21/19 05:00 Ativan - PO 08/21/19 23:01 0500,1100,1700,2300 [facility] Lorazepam 1 mg 08/19/19 00:31 08/20/19 09:47 Ativan - PO 08/21/19 23:59 1 mg Q4H PRN Administration Symptoms of Withdrawal Multivitamins/Minerals/Vitamin C 1 tab 08/20/19 10:00 08/20/19 09:46 Tab-A-Vit - PO 1 tab DAILY [facility] Administration Thiamine HCl 100 mg 08/20/19 10:00 08/20/19 09:46 Vitamin B1 - PO 100 mg DAILY [facility] Administration ASSESSMENT/PLAN: Gaurav Teixeira a 33 year old male with a past medical history of alcohol abuse who is admitted for alcohol withdrawal. Alcohol withdrawal - Continue ativan protocol - given banana bag, started on thiamine, folic acid, MVI - frequent neuro monitoring Q2H, monitor for withdrawals - Addiction medicine consulted, is a candidate for detox at [facility] pending insurance - Fall precautions - CT head with no acute pathology - CT c-spine no noted fractures - CT facial no noted fractures Elevated bilirubin and transaminitis - improving - Likely 2/2 alcohol abuse - RUQ US on last admission: fatty infiltration of the liver, no noted splenomegaly Elevated CPK - CK 1631--> 1636-->3350, continue to trend - given 3L bolus - continue fluids Thrombocytopenia - Likely 2/2 alcohol abuse - continue to monitor, improved from previous admission Depression - psych consult FEN - IV LR at 150ml/hr, can decrease rate upon resolution of CPK - continue to monitor electrolytes and replete as necessary - regular diet DVT ppx - SCDs Disposition - continue to monitor on med-surg Visit type - Emergency Visit Emergency Visit: Yes ED Registration Date: 08/18/19 Care time: The patient presented to the Emergency Department on the above date and was hospitalized for further evaluation of their emergent condition. - New Patient This patient is new to me today: No - Critical Care Critical Care patient: No
--- NOTE | 2019-08-20 17:07 | CON.PSY ---
Psychiatry Consult Chief Complaint: Patient seen and spoke to his . 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 both deny any depression. Patient is very confotrtyable, watching videos on his phone. Symptoms: reports: Irritability - Previous Psychiatric Treatment Outpatient: None Inpatient: None - Previous Substance Abuse Treatment Outpatient: More than 6 mos ago Inpatient: Within the last 12 months - Reason for Previous Treatment Reason for Previous Treatment: Alcohol Abuse - Current Medications Current Medications: Active Medications Folic Acid (Folic Acid -) 1 mg PO DAILY [facility] Last Admin: 08/20/19 09:46 Dose: 1 mg Lactated Ringer's (Lactated Ringers Solution) 1,000 ml in 1,000 mls @ 150 mls/ hr IV ASDIR [facility] Lorazepam (Ativan -) 2 mg PO 0500,1100,1700,2300 [facility] Stop: 08/20/19 23:01 Last Admin: 08/20/19 11:40 Dose: 2 mg Lorazepam (Ativan -) 0.5 mg PO Q6H [facility] Stop: 08/22/19 23:01 Lorazepam (Ativan -) 0.5 mg PO Q4H PRN PRN Reason: Symptoms of Withdrawal Lorazepam (Ativan -) 0.5 mg PO ONCE ONE Stop: 08/23/19 05:01 Lorazepam (Ativan -) 1 mg PO 0500,1100,1700,2300 [facility] Stop: 08/21/19 23:01 Lorazepam (Ativan -) 1 mg PO Q4H PRN PRN Reason: Symptoms of Withdrawal Stop: 08/21/19 23:59 Last Admin: 08/20/19 09:47 Dose: 1 mg Multivitamins/Minerals/Vitamin C (Tab-A-Vit -) 1 tab PO DAILY [facility] Last Admin: 08/20/19 09:46 Dose: 1 tab Thiamine HCl (Vitamin B1 -) 100 mg PO DAILY [facility] Last Admin: 08/20/19 09:46 Dose: 100 mg - Allergies Allergies: Allergies Allergy/AdvReac Type Severity Reaction Status Date / Time No Known Allergies Allergy Verified 08/18/19 18:49 - Current Living Status Usual Living Arrangement: With Spouse - Current Mental Status Evaluation Appearance: Well Groomed Attitude: Cooperative - Affect Affect: Constrictive Appropriateness: Appropriate to Content - Mood Mood: Irritable - Speech/Language Expressive: Coherent - Psychomotor Activity Psychomotor Activity: Normal - Thought Process Thought Process: Intact - Thought Content Hallucinations: Absent Delusions: Absent - Self Perception Self Perception: No Impairment - Cognition Orientation: Time Memory, Immediate Recall: Intact Memory, Short Term: 3/3 Memory, Remote with Promptin/3 - Concentration Serial Sevens Intact: No Simple Calculations Intact: Yes - Abstraction Proverb Interpretation: Intact Judgement: Minimally Impaired - Insight Insight: Impaired - Impulse Control Impulse Control: Minimally Impaired - Suicidal Ideation Suicidal Ideation: No - Homicidal Ideation Homicidal Ideation: No Assessment/Plan 1) No evidence of Clinical Depression, no need for Anti Depressants.
[2019-08-20] MEDS ORDERED: SODIUM CHLORIDE 1,000 ML IV STA (18:57)
[2019-08-20] MEDS: SODIUM CHLORIDE 0.9%/KCL 20 MEQ/1,000 ML INFUS.BAG IV SCH (22:22)
[2019-08-21] MEDS: SODIUM CHLORIDE 0.9%/KCL 20 MEQ/1,000 ML INFUS.BAG IV SCH ×3 (04:05→23:17)
[2019-08-21] MEDS: LORazepam 1 MG TABLET PO SCH ×4 (04:06→23:16)
[2019-08-21 07:26] LABS: HEMATOCRIT 37.1 % (35.4-49); HEMOGLOBIN 13.2 GM/dL (11.7-16.9); MCH 35.3 pg (25.7-33.7); MCHC 35.6 g/dl (32.0-35.9); MEAN CELL VOLUME 98.9 fl (80-96); MEAN PLT VOLUME 9.4 fl (7.5-11.1); PLATELET COUNT 109 K/MM3 (134-434); RBC 3.75 M/mm3 (4.00-5.60); RDW 11.9 % (11.9-15.9); WHITE BLOOD COUNT 5.4 K/mm3 (4.0-10.0)
[2019-08-21 07:51] LABS: ALBUMIN 3.8 g/dl (3.4-5.0); BLOOD UREA NITROGEN 5.8 mg/dL (7-18); CALCIUM 9.4 mg/dL (8.5-10.1); CREATININE 0.5 mg/dL (0.55-1.3); POTASSIUM 3.7 mmol/L (3.5-5.1); TOT PROT 7.3 g/dl (6.4-8.2)
[2019-08-21] MEDS: MULTIVITAMINS (DAILY MVI) TABLET (FP) PO SCH (09:39)
[2019-08-21] MEDS: THIAMINE HCL 100 MG TABLET (FP) PO SCH (09:39)
[2019-08-21] MEDS: FOLIC ACID 1 MG TABLET (FP) PO SCH (09:39)
--- NOTE | 2019-08-21 11:20 | PN ---
Physical Exam: SUBJECTIVE: Patient seen and examined, no complaints, eager to go home. OBJECTIVE: Vital Signs Period Temp Pulse Resp BP Sys/Art Pulse Ox Last 24 Hr 97.7 F-98.6 F 70-84 20-20 118-135/67-83 99 Intake & Output 08/18/19 08/19/19 08/20/19 08/21/19 23:59 23:59 23:59 23:59 Intake Total 1675 7350 1200 Output Total 950 Balance 1675 6400 1200 Weight 130 lb 118 lb 6.4 oz GENERAL: lying in bed, comfortable, no acute distress HEENT: resolving periorbital ecchymosis/Left subconjuntival haemorrhage, EOMI left scalp swelling/ecchymosis resolving CVS:S1S2 regular Chest: CTAB, no rales or wheezing Abdomen:Soft, NT Extremities: mild tremors, no edema Home Medications Medication Instructions Recorded NK [No Known Home Medication] 04/02/18 Laboratory Results - last 24 hr 08/20/19 08/21/19 08/21/19 17:00 06:50 06:50 WBC 5.4 RBC 3.75 L Hgb 13.2 Hct 37.1 MCV 98.9 H MCH 35.3 H MCHC 35.6 RDW 11.9 Plt Count 109 L D MPV 9.4 Sodium 137 Potassium 3.7 Chloride 104 Carbon Dioxide 27 Anion Gap 6 L BUN 5.8 L Creatinine 0.5 L Est GFR (CKD-EPI)AfAm 167.36 Est GFR (CKD-EPI)NonAf 144.40 Random Glucose 90 Calcium 9.4 Magnesium 2.0 Total Bilirubin 1.0 AST 236 H ALT 156 H Alkaline Phosphatase 76 Creatine Kinase 3712 H Creatine Kinase Index No Result Required. CK-MB (CK-2) < 1.0 Total Protein 7.3 Albumin 3.8 Active Medications Generic Name Dose Route Start Last Admin Trade Name Freq PRN Reason Stop Dose Admin Folic Acid 1 mg 08/20/19 10:00 08/21/19 09:39 Folic Acid - PO 1 mg DAILY [facility] Administration Potassium Chloride/Sodium Chloride 20 meq in 1,000 mls @ 150 mls/hr 08/20/19 19:15 08/21/19 04:05 Ns+20 Meq Kcl - IV 150 mls/hr ASDIR [facility]ANI Administration Lorazepam 0.5 mg 08/22/19 05:00 Ativan - PO 08/22/19 23:01 Q6H [facility]ANI Lorazepam 0.5 mg 08/22/19 00:00 Ativan - PO Q4H PRN Symptoms of Withdrawal Lorazepam 0.5 mg 08/23/19 05:00 Ativan - PO 08/23/19 05:01 ONCE ONE Lorazepam 1 mg 08/21/19 05:00 08/21/19 04:06 Ativan - PO 08/21/19 23:01 1 mg 0500,1100,1700,2300 [facility] Administration Lorazepam 1 mg 08/19/19 00:31 08/20/19 09:47 Ativan - PO 08/21/19 23:59 1 mg Q4H PRN Administration Symptoms of Withdrawal Multivitamins/Minerals/Vitamin C 1 tab 08/20/19 10:00 08/21/19 09:39 Tab-A-Vit - PO 1 tab DAILY [facility] Administration Thiamine HCl 100 mg 08/20/19 10:00 08/21/19 09:39 Vitamin B1 - PO 100 mg DAILY [facility] Administration ASSESSMENT/PLAN: 33 yom with ETOH abuse admitted 08/16 with seizure, alcohol withdrawal when left AMA, re-admitted with similar symptoms. -Reported repeat Seizure, suspect alcohol withdrawal related (24 hours after last drink) -Acute alcohol withdrawal -fall/Seizure with nikole-orbital ecchymosis/Scalp hematoma -Rhabdomyolysis, suspect from fall/seizure -ETOH abuse/dependence -Abnormal LFTs, suspect alcoholic hepatitis -Thrombocytopenia from ETOH abuse related bone marrow suppression Plan: Ativan detox protocol mental status improving, patient agreable to detox, Not a candidate for [facility] Psych input noted. CPK rising, aggressive hydration, trend for now. LFTs improved. Trauma w/u in ED neg for concerns. Platelets improved. DVTPXP SCDs Dispo dc home on Friday after finishes inpatient detox if no new concerns, with outpatient follow up with drug rehab Plan discussed with patient. Visit type - Emergency Visit Emergency Visit: Yes ED Registration Date: 08/18/19 Care time: The patient presented to the Emergency Department on the above date and was hospitalized for further evaluation of their emergent condition. - New Patient This patient is new to me today: No - Critical Care Critical Care patient: No - Discharge Referral Referred to [facility] No
[2019-08-22] MEDS ORDERED: LORazepam 0.5 MG TABLET PO PRN
[2019-08-22 07:31] LABS: BASO % 1.1 % (0-2.0); EOS % 4.8 % (0-4.5); HEMATOCRIT 37.6 % (35.4-49); HEMOGLOBIN 13.3 GM/dL (11.7-16.9); LYMPH % 23.1 % (8-40); MCH 34.8 pg (25.7-33.7); MCHC 35.4 g/dl (32.0-35.9); MEAN CELL VOLUME 98.3 fl (80-96); MEAN PLT VOLUME 9.3 fl (7.5-11.1); MONO % 17.5 % (3.8-10.2); NEUT % 53.5 % (42.8-82.8); PLATELET COUNT 145 K/MM3 (134-434); RBC 3.82 M/mm3 (4.00-5.60); RDW 12.2 % (11.9-15.9); WHITE BLOOD COUNT 6.2 K/mm3 (4.0-10.0)
[2019-08-22] MEDS: LORazepam 0.5 MG TABLET PO SCH ×4 (07:35→22:57)
[2019-08-22 08:20] LABS: ANION GAP 7 MMOL/L (8-16); BLOOD UREA NITROGEN 5.7 mg/dL (7-18); CALCIUM 9.6 mg/dL (8.5-10.1); CHLORIDE 104 mmol/L (98-107); CO2 24 mmol/L (21-32); CREATININE 0.5 mg/dL (0.55-1.3); GLUCOSE,RANDOM 89 mg/dL (74-106); POTASSIUM 4.1 mmol/L (3.5-5.1); SODIUM 135 mmol/L (136-145)
[2019-08-22] MEDS: FOLIC ACID 1 MG TABLET (FP) PO SCH (09:36)
[2019-08-22] MEDS: SODIUM CHLORIDE 0.9%/KCL 20 MEQ/1,000 ML INFUS.BAG IV SCH ×3 (09:36→23:58)
[2019-08-22] MEDS: MULTIVITAMINS (DAILY MVI) TABLET (FP) PO SCH (09:36)
[2019-08-22] MEDS: THIAMINE HCL 100 MG TABLET (FP) PO SCH (09:36)
[2019-08-22 10:14] LABS: ALK PHOS 83 U/L (45-117); BILIRUBIN,DIRECT 0.4 mg/dL (0.0-0.2); SGOT/AST 300 U/L (15-37); SGPT/ALT 217 U/L (13-61); TOT PROT 7.6 g/dl (6.4-8.2)
--- NOTE | 2019-08-22 11:25 | PN ---
Teaching Attending Note Name of Resident: Shae Watt ATTENDING PHYSICIAN STATEMENT I saw and evaluated the patient. I reviewed the resident's note and discussed the case with the resident. I agree with the resident's findings and plan as documented with exceptions below. SUBJECTIVE: patient seen and examined, more confused today, no complaints. OBJECTIVE: Vital Signs Period Temp Pulse Resp BP Sys/Art Pulse Ox Last 24 Hr 98 F-98.5 F 73-78 15-20 110-136/70-82 Intake & Output 08/19/19 08/20/19 08/21/19 08/22/19 23:59 23:59 23:59 23:59 Intake Total 1675 7350 3600 900 Output Total 950 3500 Balance 1675 6400 100 900 Weight 118 lb 6.4 oz General: sleeping, arousable, confused, oriented to self, but thought is at home , tangential when asked about the time/month/year HEENT: resolving periorbital ecchymosis, EOMI, resolving left subconjunctival haemorrhage Neck: soft, supple Chest: CTAB, no rales or wheezing Abdomen:Soft, NT Extremities: mild tremors noted Home Medications Medication Instructions Recorded NK [No Known Home Medication] 04/02/18 Active Medications Folic Acid (Folic Acid -) 1 mg PO DAILY [facility] Last Admin: 08/22/19 09:36 Dose: 1 mg Potassium Chloride/Sodium Chloride (Ns+20 Meq Kcl -) 20 meq in 1,000 mls @ 150 mls/hr IV ASDIR [facility] Last Admin: 08/22/19 09:36 Dose: 150 mls/hr Lorazepam (Ativan -) 0.5 mg PO Q6H [facility] Stop: 08/22/19 23:01 Last Admin: 08/22/19 07:35 Dose: 0.5 mg Lorazepam (Ativan -) 0.5 mg PO Q4H PRN PRN Reason: Symptoms of Withdrawal Lorazepam (Ativan -) 0.5 mg PO ONCE ONE Stop: 08/23/19 05:01 Multivitamins/Minerals/Vitamin C (Tab-A-Vit -) 1 tab PO DAILY [facility] Last Admin: 08/22/19 09:36 Dose: 1 tab Thiamine HCl (Vitamin B1 -) 100 mg PO DAILY [facility] Last Admin: 08/22/19 09:36 Dose: 100 mg Laboratory Results - last 24 hr 08/21/19 08/22/19 08/22/19 06:50 06:10 06:10 WBC 6.2 RBC 3.82 L Hgb 13.3 Hct 37.6 MCV 98.3 H MCH 34.8 H MCHC 35.4 RDW 12.2 Plt Count 145 D MPV 9.3 Absolute Neuts (auto) 3.3 Neutrophils % 53.5 Lymphocytes % 23.1 Monocytes % 17.5 H Eosinophils % 4.8 H Basophils % 1.1 Nucleated RBC % 0 Sodium 137 135 L Potassium 3.7 4.1 Chloride 104 104 Carbon Dioxide 27 24 Anion Gap 6 L 7 L BUN 5.8 L 5.7 L Creatinine 0.5 L 0.5 L Est GFR (CKD-EPI)AfAm 167.36 167.36 Est GFR (CKD-EPI)NonAf 144.40 144.40 Random Glucose 90 89 Calcium 9.4 9.6 Magnesium 2.0 Total Bilirubin 1.0 1.0 Direct Bilirubin 0.4 H AST 236 H 300 H ALT 156 H 217 H Alkaline Phosphatase 76 83 Creatine Kinase 3658 H 2094 H Creatine Kinase Index 0.0 0.1 CK-MB (CK-2) 1.1 < 1.0 Total Protein 7.3 7.6 Albumin 3.8 4.0 Alcohol, Quantitative 08/22/19 06:10 WBC RBC Hgb Hct MCV MCH MCHC RDW Plt Count MPV Absolute Neuts (auto) Neutrophils % Lymphocytes % Monocytes % Eosinophils % Basophils % Nucleated RBC % Sodium Potassium Chloride Carbon Dioxide Anion Gap BUN Creatinine Est GFR (CKD-EPI)AfAm Est GFR (CKD-EPI)NonAf Random Glucose Calcium Magnesium Total Bilirubin Direct Bilirubin AST ALT Alkaline Phosphatase Creatine Kinase Creatine Kinase Index CK-MB (CK-2) Total Protein Albumin Alcohol, Quantitative < 3 ASSESSMENT AND PLAN: 33 yom with ETOH abuse admitted 08/16 with seizure, alcohol withdrawal when left AMA, re-admitted with similar symptoms. -AMS, suspect encephalopathy from protracted DTs, r/o hep encephalopathy/trauma (none reported. -Reported repeat Seizure, suspect alcohol withdrawal related (24 hours after last drink) -Acute alcohol withdrawal -fall/Seizure with nikole-orbital ecchymosis/Scalp hematoma -Rhabdomyolysis, suspect from fall/seizure -ETOH abuse/dependence -Abnormal LFTs, suspect alcoholic hepatitis -Thrombocytopenia from ETOH abuse related bone marrow suppression Plan: More confused today, LFTs worse. Repeat ETOH level neg. Repeat Abdominal US. Check Ammonia levels/coag. Given seizures with fall/trauma on admission, follow up CT head, low suspicion. Ativan detox, will need prolonged taper if suspected to have protracted DTs and above w/u neg for alternate etiology. Not a candidate for [facility] Psych input noted. CPK improved, continue IVF. Platelets improved. DVTPXP SCDs Dispo dispo plans on hold given above. Discussed with nursing.
[2019-08-22 12:37] LABS: INR 1.06 (0.83-1.09); PROTHROMBIN TIME (PATIENT) 12.5 SEC (9.7-13.0)
--- NOTE | 2019-08-22 13:40 | PN ---
Physical Exam: SUBJECTIVE: Patient seen and examined this am, Remains confused. OBJECTIVE: Vital Signs Period Temp Pulse Resp BP Sys/Art Pulse Ox Last 24 Hr 98 F-98.5 F 73-78 15-20 110-136/70-82 GENERAL: Confused, Sleeping but easily arousable HEAD: NCAT EYES: PERRL, EOMI, Periorbital Ecchymosis ENT: moist mucous membranes LUNGS: CTAB, no wheezes, no crackles HEART: Regular rate and rhythm, S1, S2 without murmur ABDOMEN: Soft, nontender, nondistended, + bowel sounds, no guarding EXTREMITIES: no edema. NEUROLOGICAL: Cranial nerves II through XII grossly intact. Tremulous. SKIN: Warm, dry Laboratory Last Values WBC 6.2 K/mm3 (4.0-10.0) 08/22/19 06:10 RBC 3.82 M/mm3 (4.00-5.60) L 08/22/19 06:10 Hgb 13.3 GM/dL (11.7-16.9) 08/22/19 06:10 Hct 37.6 % (35.4-49) 08/22/19 06:10 MCV 98.3 fl (80-96) H 08/22/19 06:10 MCH 34.8 pg (25.7-33.7) H 08/22/19 06:10 MCHC 35.4 g/dl (32.0-35.9) 08/22/19 06:10 RDW 12.2 % (11.9-15.9) 08/22/19 06:10 Plt Count 145 K/MM3 (134-434) D 08/22/19 06:10 MPV 9.3 fl (7.5-11.1) 08/22/19 06:10 Absolute Neuts (auto) 3.3 K/mm3 (1.5-8.0) 08/22/19 06:10 Neutrophils % 53.5 % (42.8-82.8) 08/22/19 06:10 Lymphocytes % 23.1 % (8-40) 08/22/19 06:10 Monocytes % 17.5 % (3.8-10.2) H 08/22/19 06:10 Eosinophils % 4.8 % (0-4.5) H 08/22/19 06:10 Basophils % 1.1 % (0-2.0) 08/22/19 06:10 Nucleated RBC % 0 % (0-0) 08/22/19 06:10 PT with INR 12.50 SEC (9.7-13.0) 08/22/19 11:50 INR 1.06 (0.83-1.09) 08/22/19 11:50 PTT (Actin FS) 32.2 SECONDS (25.2-36.5) 08/18/19 21:20 Sodium 135 mmol/L (136-145) L 08/22/19 06:10 Potassium 4.1 mmol/L (3.5-5.1) 08/22/19 06:10 Chloride 104 mmol/L (98-107) 08/22/19 06:10 Carbon Dioxide 24 mmol/L (21-32) 08/22/19 06:10 Anion Gap 7 MMOL/L (8-16) L 08/22/19 06:10 BUN 5.7 mg/dL (7-18) L 08/22/19 06:10 Creatinine 0.5 mg/dL (0.55-1.3) L 08/22/19 06:10 Est GFR (CKD-EPI)AfAm 167.36 08/22/19 06:10 Est GFR (CKD-EPI)NonAf 144.40 08/22/19 06:10 Random Glucose 89 mg/dL (74-106) 08/22/19 06:10 Calcium 9.6 mg/dL (8.5-10.1) 08/22/19 06:10 Phosphorus 3.8 mg/dL (2.5-4.9) 08/19/19 02:50 Magnesium 2.0 mg/dL (1.8-2.4) 08/21/19 06:50 Total Bilirubin 1.0 mg/dL (0.2-1) 08/22/19 06:10 Direct Bilirubin 0.4 mg/dL (0.0-0.2) H 08/22/19 06:10 AST 300 U/L (15-37) H 08/22/19 06:10 ALT 217 U/L (13-61) H 08/22/19 06:10 Alkaline Phosphatase 83 U/L (45-117) 08/22/19 06:10 Ammonia 21.80 umol/L (11-32) 08/22/19 11:50 Creatine Kinase 2094 U/L (26-308) H 08/22/19 06:10 Creatine Kinase Index 0.1 % (0.0-5.0) 08/22/19 06:10 CK-MB (CK-2) < 1.0 ng/mL (0.5-3.6) 08/22/19 06:10 Troponin I < 0.02 ng/ml (0.00-0.05) 08/19/19 02:50 Total Protein 7.6 g/dl (6.4-8.2) 08/22/19 06:10 Albumin 4.0 g/dl (3.4-5.0) 08/22/19 06:10 Opiates Screen Negative ng/ml (JDAVAR=330) 08/18/19 22:55 Methadone Screen Negative ng/ml (OBPLXJ=260) 08/18/19 22:55 Barbiturate Screen Negative ng/ml (NFTMGB=535) 08/18/19 22:55 Phencyclidine Screen Negative ng/ml (CUTOFF=25) 08/18/19 22:55 Ur Amphetamines Screen Negative ng/ml (YVSVIR=790) 08/18/19 22:55 MDMA (Ecstasy) Screen Negative ng/ml (LEFPMV=834) 08/18/19 22:55 Benzodiazepines Screen Positive ng/ml (SPMASL=180) A* 08/18/19 22:55 Cocaine Screen Negative ng/ml (LJOLKB=729) 08/18/19 22:55 U Marijuana (THC) Screen Negative ng/ml (CUTOFF=50) 08/18/19 22:55 Alcohol, Quantitative < 3 mg/dL (0.0-5.0) 08/22/19 06:10 Active Medications Folic Acid (Folic Acid -) 1 mg PO DAILY [facility] Last Admin: 08/22/19 09:36 Dose: 1 mg Potassium Chloride/Sodium Chloride (Ns+20 Meq Kcl -) 20 meq in 1,000 mls @ 150 mls/hr IV ASDIR [facility] Last Admin: 08/22/19 09:36 Dose: 150 mls/hr Lorazepam (Ativan -) 0.5 mg PO Q6H [facility] Stop: 08/22/19 23:01 Last Admin: 08/22/19 11:49 Dose: 0.5 mg Lorazepam (Ativan -) 0.5 mg PO Q4H PRN PRN Reason: Symptoms of Withdrawal Lorazepam (Ativan -) 0.5 mg PO ONCE ONE Stop: 08/23/19 05:01 Multivitamins/Minerals/Vitamin C (Tab-A-Vit -) 1 tab PO DAILY [facility] Last Admin: 08/22/19 09:36 Dose: 1 tab Thiamine HCl (Vitamin B1 -) 100 mg PO DAILY [facility] Last Admin: 08/22/19 09:36 Dose: 100 mg ASSESSMENT/PLAN: 33 y/o M with PMHx of EtOH abuse who is admitted for alcohol withdrawal. #AMS - In the setting of acute EtOH withdrawal - Worsening confusion today concerning for encephalopathy from DTs - Check EtOH Level, Ammonia, CT Head Noncon, Abdominal US - Continue ativan protocol, thiamine, folic acid, MVI - Neurochecks Q2H, Check CIWA, Fall precautions - Addiction medicine and Psych consulted, appreciate rec's #Rhabdomyolysis - Elevated CPK likely due to recent Seizure, Trauma (Fall) - Trend CPK, Improving - continue IV Hydration #Elevated bilirubin and transaminitis, improving - Likely Alcoholic Hepatitis - Repeat RUQ US pending #Thrombocytopenia, Improving - Likely 2/2 alcohol abuse #Depression - psych consulted, appreciate rec's #FEN - IV NS+20 Meq Kcl 150 mls/hr - Replete lytes PRN - regular diet #PPx - DVT: SCDs Dispo:monitor on med-surg Visit type - Emergency Visit Emergency Visit: Yes ED Registration Date: 08/18/19 Care time: The patient presented to the Emergency Department on the above date and was hospitalized for further evaluation of their emergent condition. - New Patient This patient is new to me today: Yes Date on this admission: 08/22/19 - Critical Care Critical Care patient: No ATTENDING PHYSICIAN STATEMENT I saw and evaluated the patient. I reviewed the resident's note and discussed the case with the resident. I agree with the resident's findings and plan as documented. SUBJECTIVE: OBJECTIVE: ASSESSMENT AND PLAN:
[2019-08-23] MEDS ORDERED: LORazepam 0.5 MG TABLET PO ONE (05:00)
[2019-08-23 08:36] LABS: BASO % 1.7 % (0-2.0); EOS % 5.2 % (0-4.5); HEMATOCRIT 36.6 % (35.4-49); HEMOGLOBIN 12.8 GM/dL (11.7-16.9); LYMPH % 26.3 % (8-40); MCH 34.7 pg (25.7-33.7); MEAN CELL VOLUME 99.1 fl (80-96); MEAN PLT VOLUME 9.1 fl (7.5-11.1); MONO % 20.1 % (3.8-10.2); NEUT % 46.7 % (42.8-82.8); PLATELET COUNT 184 K/MM3 (134-434); RDW 12.1 % (11.9-15.9); WHITE BLOOD COUNT 6.4 K/mm3 (4.0-10.0)
[2019-08-23 08:52] LABS: ALBUMIN 3.6 g/dl (3.4-5.0); ALK PHOS 81 U/L (45-117); ANION GAP 5 MMOL/L (8-16); BILIRUBIN,TOTAL 0.9 mg/dL (0.2-1); BLOOD UREA NITROGEN 6.9 mg/dL (7-18); CALCIUM 9.4 mg/dL (8.5-10.1); CHLORIDE 106 mmol/L (98-107); CO2 26 mmol/L (21-32); CREATININE 0.5 mg/dL (0.55-1.3); GLUCOSE,RANDOM 88 mg/dL (74-106); PHOSPHOROUS 4.4 mg/dL (2.5-4.9); POTASSIUM 4.2 mmol/L (3.5-5.1); SGOT/AST 267 U/L (15-37); SGPT/ALT 249 U/L (13-61); SODIUM 137 mmol/L (136-145)
[2019-08-23] MEDS ORDERED: PT OWN MED DRAWER 7, Y5N ONE (09:55)
[2019-08-23] MEDS: THIAMINE HCL 100 MG TABLET (FP) PO SCH (09:57)
[2019-08-23] MEDS: FOLIC ACID 1 MG TABLET (FP) PO SCH (09:57)
[2019-08-23] MEDS: MULTIVITAMINS (DAILY MVI) TABLET (FP) PO SCH (09:57)
[2019-08-23 11:44] VITALS: BP 110/65; PULSE 75; TEMP 97.9
[2019-08-23 12:22] LABS: ANISOCYTOSIS 0; MACROCYTOSIS 0; PLATELET ESTIMATE NORMAL
[2019-08-23] MEDS: SODIUM CHLORIDE 0.9%/KCL 20 MEQ/1,000 ML INFUS.BAG IV SCH (14:41)
--- NOTE | 2019-08-23 15:36 | PN ---
Teaching Attending Note Name of Resident: Xavi Devine ATTENDING PHYSICIAN STATEMENT I saw and evaluated the patient. I reviewed the resident's note and discussed the case with the resident. I agree with the resident's findings and plan as documented with exceptions below. SUBJECTIVE: Patient seen and examined. awake, Ox3, no complaints. OBJECTIVE: Vital Signs Period Temp Pulse Resp BP Sys/Art Pulse Ox Last 24 Hr 97.6 F-98.3 F 62-83 15-20 107-119/59-69 Intake & Output 08/20/19 08/21/19 08/22/19 08/23/19 23:59 23:59 23:59 23:59 Intake Total 7350 3600 2250 1050 Output Total 950 3500 1600 1800 Balance 6400 100 650 -750 General: sitting in bed, awake, pleasant, no acute distress HEENT: resoling nikole-orbital ecchymosis Chest: CTAB, no rales or wheezing Abdomen:Soft, NT throughout Extremities: improved tremors Home Medications Medication Instructions Recorded Folic Acid - 1 mg PO DAILY #30 tablet 08/23/19 Multivitamins [Multivit ([facility] 1 tab PO DAILY #30 tab 08/23/19 Formulary)] Thiamine HCl [Vitamin B1 -] 100 mg PO DAILY #30 tablet 08/23/19 Laboratory Results - last 24 hr 08/23/19 08/23/19 06:00 07:50 WBC 6.4 RBC 3.70 L Hgb 12.8 Hct 36.6 MCV 99.1 H MCH 34.7 H MCHC 35.0 RDW 12.1 Plt Count 184 D MPV 9.1 Absolute Neuts (auto) 3.0 Neutrophils % 46.7 Neutrophils % (Manual) 48.6 Band Neutrophils % 1.0 Lymphocytes % 26.3 Lymphocytes % (Manual) 28.6 Monocytes % 20.1 H Monocytes % (Manual) 15 H Eosinophils % 5.2 H Eosinophils % (Manual) 5.7 H Basophils % 1.7 Basophils % (Manual) 0.9 Myelocytes % (Man) 0 Promyelocytes % (Man) 0 Blast Cells % (Manual) 0 Nucleated RBC % 0 Metamyelocytes 0 Hypochromia 0 Platelet Estimate Normal Polychromasia 0 Poikilocytosis 0 Anisocytosis 0 Microcytosis 0 Macrocytosis 0 Sodium 137 Potassium 4.2 Chloride 106 Carbon Dioxide 26 Anion Gap 5 L BUN 6.9 L Creatinine 0.5 L Est GFR (CKD-EPI)AfAm 167.36 Est GFR (CKD-EPI)NonAf 144.40 Random Glucose 88 Calcium 9.4 Phosphorus 4.4 Magnesium 2.0 Total Bilirubin 0.9 AST 267 H ALT 249 H Alkaline Phosphatase 81 Creatine Kinase 878 H Creatine Kinase Index No Result Required. CK-MB (CK-2) < 1.0 Total Protein 7.0 Albumin 3.6 Abdominal US/CT brain results noted ASSESSMENT AND PLAN: 33 yom with ETOH abuse admitted 08/16 with seizure, alcohol withdrawal when left AMA, re-admitted with similar symptoms. -AMS, suspect encephalopathy from protracted DTs, r/o hep encephalopathy/trauma (none reported. -Reported repeat Seizure, suspect alcohol withdrawal related (24 hours after last drink) -Acute alcohol withdrawal -fall/Seizure with nikole-orbital ecchymosis/Scalp hematoma -Rhabdomyolysis, suspect from fall/seizure -ETOH abuse/dependence -Abnormal LFTs, suspect alcoholic hepatitis -Thrombocytopenia from ETOH abuse related bone marrow suppression Plan: Mental status at baseline today, awake, OX3. LFTs improved. Finished ativan detox ETOH cessation counseling and information on [facility] if patient interested. CPK improved Medical clinical information provided. Dc home today Plan discussed with patient.
--- NOTE | 2019-08-23 18:29 | DS ---
Physical Exam: SUBJECTIVE: Patient seen and examined at the bedside. Stated that he feels better, denies seizure activity. Patient denies any cp, sob, abd pain, n/v/c/d, fever, chills, tremors, anxiety, hallucinations, numbness, tingling. OBJECTIVE: Vital Signs Period Temp Pulse Resp BP Sys/Art Pulse Ox Last 24 Hr 97.9 F-98.3 F 62-75 15-20 110-119/63-69 PHYSICAL EXAM GENERAL: The patient is awake, alert, and fully oriented, in no acute distress. HEAD: Normal with no signs of trauma. EYES: Extraocular movements intact. Periorbital ecchymosis around both eyes. ENT: Oropharynx clear without exudates, moist mucous membranes. LUNGS: Breath sounds equal, clear to auscultation bilaterally, no wheezes, no crackles, no accessory muscle use. HEART: Regular rate and rhythm, S1, S2 without murmur, rub. ABDOMEN: Soft, nontender, nondistended, normoactive bowel sounds, no guarding, no rebound, no masses. EXTREMITIES: 2+ pulses, warm, well-perfused, no edema. NEUROLOGICAL: Cranial nerves II through XII grossly intact. 5/5 muscle strength bilaterally upper and lower extremities. SKIN: Warm, dry, normal turgor. LABS Laboratory Results - last 24 hr 08/23/19 08/23/19 06:00 07:50 WBC 6.4 RBC 3.70 L Hgb 12.8 Hct 36.6 MCV 99.1 H MCH 34.7 H MCHC 35.0 RDW 12.1 Plt Count 184 D MPV 9.1 Absolute Neuts (auto) 3.0 Neutrophils % 46.7 Neutrophils % (Manual) 48.6 Band Neutrophils % 1.0 Lymphocytes % 26.3 Lymphocytes % (Manual) 28.6 Monocytes % 20.1 H Monocytes % (Manual) 15 H Eosinophils % 5.2 H Eosinophils % (Manual) 5.7 H Basophils % 1.7 Basophils % (Manual) 0.9 Myelocytes % (Man) 0 Promyelocytes % (Man) 0 Blast Cells % (Manual) 0 Nucleated RBC % 0 Metamyelocytes 0 Hypochromia 0 Platelet Estimate Normal Polychromasia 0 Poikilocytosis 0 Anisocytosis 0 Microcytosis 0 Macrocytosis 0 Sodium 137 Potassium 4.2 Chloride 106 Carbon Dioxide 26 Anion Gap 5 L BUN 6.9 L Creatinine 0.5 L Est GFR (CKD-EPI)AfAm 167.36 Est GFR (CKD-EPI)NonAf 144.40 Random Glucose 88 Calcium 9.4 Phosphorus 4.4 Magnesium 2.0 Total Bilirubin 0.9 AST 267 H ALT 249 H Alkaline Phosphatase 81 Creatine Kinase 878 H Creatine Kinase Index No Result Required. CK-MB (CK-2) < 1.0 Total Protein 7.0 Albumin 3.6 HOSPITAL COURSE: Gaurav Burdick is a 33 year old male with a past medical history of EtOH abuse who is admitted for alcohol withdrawal. Patient was started and completed Ativan detox protocol and did not have any withdrawal symptoms by day of discharge. Patient had elevated CK levels which were trending down by day of discharge. Patient was encouraged to continue having adequate fluid intake. Had transaminitis likely from alcoholic hepatitis which was improving by day of discharged. Was advised to cease drinking. Was advised to follow up with a rehabilitation program for alcohol abuse. Was advised to follow up in a week for CPK levels, liver enzymes, CBC. Was advised to follow up with PCP and psychiatry. Was started on folic acid, MVI, and thiamine. Patient was advised of the plan, was in agreement, and reiterated the plan. Patient was discharged in stable medical condition. Date of Admission:08/18/19 Date of Discharge: 08/23/19 Minutes to complete discharge: 35 Discharge Summary Problems reviewed: Yes Reason For Visit: ALCOHOL WITHDRAWL SEIZURE Condition: Stable - Instructions Diet, Activity, Other Instructions: You were admitted for seizures that were due to withdrawal from alcohol. You were given medications to help with your withdrawal symptoms. You are highly advised not to drink alcohol. MEDICATIONS START to take folic acid 1mg once daily. START to take a Multivitamin daily. START to take thiamine 100mg once daily. REFERRALS Please see your primary care doctor within 1 week. If you do not have a primary care doctor, you may follow up with the resident's clinic. Information to make any appointment is provided. You can follow up with neurologist who saw you in the hospital or discuss with your clinic doctor for referral (information provided) You are advised to attend a rehabilitation program for your alcohol use disorder. You may call [facility] and set up an appointment depending on if you would like to do inpatient or outpatient rehab. Please follow up with psychiatry Dr. Escalera, within 1-2 weeks. SPECIAL INSTRUCTIONS You are advised to get repeat blood work to check your CPK levels, liver enzymes , and complete blood count within 1 week. You may do this at your primary care doctor's office. You are advised to drink plenty of water every day to prevent any damage to your kidneys. You are highly advised not to drink alcohol as it could further damage your kidneys, liver, heart, brain, and other vital organs. It may also cause you to have seizures when you do not drink. No driving, operating heavy machinery. Avoid being alone on heights, with children or in water till further advised by your neurologist. If you have any symptoms of chest pain, shortness of breath, seizures, confusion , inability to walk, repeated falls, or any other general feelings of unwellness , please call 911 or go your nearest emergency room. Referrals: [facility] – [place] [facility] [place] [Provider Group] Jose Cat MD [Staff Physician] - Disposition: HOME - Home Medications Comprehensive Discharge Medication List: Ambulatory Orders Folic Acid - 1 mg PO DAILY #30 tablet 08/23/19 Multivitamins [Multivit ([facility] Formulary)] 1 tab PO DAILY #30 tab 08/23/19 Thiamine HCl [Vitamin B1 -] 100 mg PO DAILY #30 tablet 08/23/19 Problem List - Problems (1) Alcohol abuse Code(s): F10.10 - ALCOHOL ABUSE, UNCOMPLICATED (2) Alcohol withdrawal seizure Code(s): F10.239 - ALCOHOL DEPENDENCE WITH WITHDRAWAL, UNSPECIFIED; R56.9 - UNSPECIFIED CONVULSIONS Qualifiers: Complication of substance-induced condition: uncomplicated Qualified Code(s ): F10.230 - Alcohol dependence with withdrawal, uncomplicated (3) Closed head injury Code(s): S09.90XA - UNSPECIFIED INJURY OF HEAD, INITIAL ENCOUNTER Qualifiers: Encounter type: initial encounter Qualified Code(s): S09.90XA - Unspecified injury of head, initial encounter (4) Elevated liver function tests Code(s): R94.5 - ABNORMAL RESULTS OF LIVER FUNCTION STUDIES (5) Hematoma of frontal scalp Code(s): S00.03XA - CONTUSION OF SCALP, INITIAL ENCOUNTER Qualifiers: Encounter type: initial encounter Qualified Code(s): S00.03XA - Contusion of scalp, initial encounter (6) Withdrawal seizures Code(s): F19.239 - OTH PSYCHOACTIVE SUBSTANCE DEPENDENCE WITH WITHDRAWAL, UNSP; R56.9 - UNSPECIFIED CONVULSIONS Qualifiers: Complication of substance-induced condition: with unspecified complication Qualified Code(s): F19.239 - Other psychoactive substance dependence with withdrawal, unspecified; R56.9 - Unspecified convulsions This patient is new to me today: No Emergency Visit: Yes ED Registration Date: 08/18/19 Care time: The patient presented to the Emergency Department on the above date and was hospitalized for further evaluation of their emergent condition. Critical Care patient: No - Discharge Referral Referred to [facility] No
== END 2019-08-23 16:47 | disposition home or self-care (01) | DRG 775 ==
LOC: JER 18:27 → JERBED 23:26 → J8W 08-19 05:03
PROVIDERS: ADMIT Internal Medicine; ATTEND Hospitalist
PROC: HZ2ZZZZ Detoxification Services for Substance Abuse Treatment (ICD-10-PCS; principal; 2019-08-18)
DX: F10.239 Alcohol dependence with withdrawal, unspecified (principal); R74.0 Nonspecific elevation of levels of transaminase and lactic acid dehydrogenase [LDH]; G93.40 Encephalopathy, unspecified; D69.6 Thrombocytopenia, unspecified; R56.9 Unspecified convulsions; M62.82 Rhabdomyolysis; F32.9 Major depressive disorder, single episode, unspecified; K70.30 Alcoholic cirrhosis of liver without ascites; S00.12XA Contusion of left eyelid and periocular area, initial encounter; H11.32 Conjunctival hemorrhage, left eye; W19.XXXA Unspecified fall, initial encounter; Y93.9 Activity, unspecified; Y92.89 Other specified places as the place of occurrence of the external cause; Y99.9 Unspecified external cause status
CPT/HCPCS: 36415; 70450-TC; 70486-TC; 71046-TC-FY; 72125-TC; 76705-TC; 80048; 80053; 80076; 80307; 82140; 82550; 82553; 83735; 84100; 84484; 85025; 85027; 85610; 85730; 90732; 93005; 93010; 97116-GP; 97161-GP; 99285-25; G0008; G0009; J7030; Q2036